=== PATIENT | male | born 1940 | race Caucasian/White ===

== ENCOUNTER 2018-09-03 13:22 | Emergency (ER) | payer MEDICARE, BC ==
--- NOTE | 2018-09-03 15:08 | RAD ---
RADIOGRAPH LEFT HIP TWO VIEWS: 09/03/2018 HISTORY: A 77-year-old male with history of multiple myeloma who presents with left hip pain. FINDINGS: There is an approximately 2.5 x 3 cm osteolytic lesion, centered in the marrow cavity of the proximal femoral diaphysis, which causes endosteal scalloping. There are multifocal, more subtle, smaller focal lucencies in the rest of the bones, including the i nferior ramus, the iliac wing, and the greater trochanter. This could be part of the osteopenia or c ould represent additional multiple myeloma lesions. The latter is favored. There is no evidence of acute fracture. No dislocation. Femoral head contour is maintained without significant subcapital osteophytes. There is mild bony hypertrophy of the acetabular roof. No high grade joint space narrowing of the left hip. IMPRESSION: 1. Osteolytic lesion in the left proximal femoral shaft is (evidence for) a multiple myeloma lesion. 2. Additional smaller osteolytic lesions. See above comments. 3. No fracture or dislocation. 4. Mild osteoarthrosis of the left hip. POS: [facility]
--- NOTE | 2018-09-03 15:12 | RAD ---
FRONTAL VIEW PELVIS: INDICATION: Pain. History of multiple myeloma. FINDINGS: There is no evidence of a fracture identified. A rounded hypodensity of the right ischium is present , and there are multiple areas of punctate hypodensity, nonspecific. There is a smaller hypodensity of the right femoral neck region. IMPRESSION: 1. No acute fracture. 2. Nonspecific lucencies overlying the osseous structures which could relate to sequelae from marrow infiltrative process in light of the clinical history. As necessary, imaging followup may be obtain ed. POS: [facility]
== END 2018-09-03 14:56 | disposition home or self-care (01) ==
LOC: MADERS 13:22
DX: M25.552 Pain in left hip (principal); C90.00 Multiple myeloma not having achieved remission; Z79.899 Other long term (current) drug therapy
CPT/HCPCS: 72170

== ENCOUNTER 2021-07-25 17:26 | Inpatient (IN) | payer MEDICARE, BC ==
[2021-07-25] MEDS ORDERED: FLU VACC QS2021-22(65YR UP)/PF 240 MCG/0.7 ML SYRINGE IM ONE (21:00)
[2021-07-25] MEDS ORDERED: Acetaminophen 325 MG TAB PO PRN ×2 (21:00→21:01)
[2021-07-25] MEDS ORDERED: Ondansetron ODT 4 MG TAB PO PRN (21:00)
[2021-07-25] MEDS ORDERED: Mometasone/Formoterol 60 PUFF AER INH SCH (23:30)
[2021-07-25] MEDS ORDERED: Nystatin 500,000 UNITS/5 ML UDCUP SSW SCH (23:30)
[2021-07-26] MEDS: Nystatin 500,000 UNITS/5 ML UDCUP SSW SCH ×4 (08:38→21:38)
[2021-07-26] MEDS: Aspirin 81 mg Enteric Coated Tablet PO SCH (08:38)
[2021-07-26] MEDS: Fluconazole 100 MG TAB PO SCH (08:38)
[2021-07-26] MEDS: Zinc Sulfate 220 MG CAP PO SCH (08:39)
[2021-07-26] MEDS: Saccharomyces boulardii 250 MG CAP PO SCH (08:39)
[2021-07-26] MEDS: Sucralfate 1 GM TAB PO SCH ×4 (08:39→21:38)
[2021-07-26] MEDS: Cholecalciferol 1,000 UNITS (25 MCG) TAB PO SCH (08:39)
[2021-07-26] MEDS: Mometasone/Formoterol 60 PUFF AER INH SCH ×2 (08:46→21:37)
[2021-07-26] MEDS ORDERED: Cholecalciferol (Vitamin D3) 400 UNITS TAB PO SCH (09:00)
[2021-07-27] MEDS: Mometasone/Formoterol 60 PUFF AER INH SCH ×2 (08:30→20:28)
[2021-07-27] MEDS ORDERED: Sucralfate 1 GM/10 ML UDCUP PO SCH (09:00)
[2021-07-27] MEDS: Saccharomyces boulardii 250 MG CAP PO SCH (09:48)
[2021-07-27] MEDS: Fluconazole 100 MG TAB PO SCH (09:48)
[2021-07-27] MEDS: Zinc Sulfate 220 MG CAP PO SCH (09:48)
[2021-07-27] MEDS: Aspirin 81 mg Enteric Coated Tablet PO SCH (09:48)
[2021-07-27] MEDS: Nystatin 500,000 UNITS/5 ML UDCUP SSW SCH ×4 (09:48→20:27)
[2021-07-27] MEDS: Cholecalciferol 1,000 UNITS (25 MCG) TAB PO SCH (09:48)
[2021-07-27] MEDS: Sucralfate 1 GM/10 ML UDCUP PO SCH ×3 (11:37→20:27)
[2021-07-28] MEDS: Sucralfate 1 GM/10 ML UDCUP PO SCH ×4 (05:38→21:26)
[2021-07-28] MEDS: Cholecalciferol 1,000 UNITS (25 MCG) TAB PO SCH (09:11)
[2021-07-28] MEDS: Zinc Sulfate 220 MG CAP PO SCH (09:11)
[2021-07-28] MEDS: Nystatin 500,000 UNITS/5 ML UDCUP SSW SCH ×4 (09:12→21:25)
[2021-07-28] MEDS: Aspirin 81 mg Enteric Coated Tablet PO SCH (09:12)
[2021-07-28] MEDS: Mometasone/Formoterol 60 PUFF AER INH SCH ×2 (09:12→21:22)
[2021-07-28] MEDS: Saccharomyces boulardii 250 MG CAP PO SCH (09:12)
[2021-07-28] MEDS: Fluconazole 100 MG TAB PO SCH (09:12)
[2021-07-29] MEDS: Sucralfate 1 GM/10 ML UDCUP PO SCH ×4 (05:45→20:16)
[2021-07-29] MEDS: Cholecalciferol 1,000 UNITS (25 MCG) TAB PO SCH (08:52)
[2021-07-29] MEDS: Saccharomyces boulardii 250 MG CAP PO SCH (08:52)
[2021-07-29] MEDS: Zinc Sulfate 220 MG CAP PO SCH (08:52)
[2021-07-29] MEDS: Nystatin 500,000 UNITS/5 ML UDCUP SSW SCH ×4 (08:52→20:52)
[2021-07-29] MEDS: Aspirin 81 mg Enteric Coated Tablet PO SCH (08:52)
[2021-07-29] MEDS: Fluconazole 100 MG TAB PO SCH (08:52)
[2021-07-29] MEDS: Mometasone/Formoterol 60 PUFF AER INH SCH ×2 (08:58→20:53)
[2021-07-30] MEDS: Sucralfate 1 GM/10 ML UDCUP PO SCH ×4 (05:48→20:12)
[2021-07-30] MEDS: Aspirin 81 mg Enteric Coated Tablet PO SCH (08:33)
[2021-07-30] MEDS: Cholecalciferol 1,000 UNITS (25 MCG) TAB PO SCH (08:33)
[2021-07-30] MEDS: Fluconazole 100 MG TAB PO SCH (08:33)
[2021-07-30] MEDS: Zinc Sulfate 220 MG CAP PO SCH (08:33)
[2021-07-30] MEDS: Saccharomyces boulardii 250 MG CAP PO SCH (08:33)
[2021-07-30] MEDS: Nystatin 500,000 UNITS/5 ML UDCUP SSW SCH ×4 (08:33→20:12)
[2021-07-30] MEDS: Mometasone/Formoterol 60 PUFF AER INH SCH ×2 (08:34→20:12)
[2021-07-31] MEDS: Sucralfate 1 GM/10 ML UDCUP PO SCH ×4 (05:22→19:53)
[2021-07-31] MEDS: Saccharomyces boulardii 250 MG CAP PO SCH (08:56)
[2021-07-31] MEDS: Mometasone/Formoterol 60 PUFF AER INH SCH ×2 (08:56→20:36)
[2021-07-31] MEDS: Zinc Sulfate 220 MG CAP PO SCH (08:56)
[2021-07-31] MEDS: Nystatin 500,000 UNITS/5 ML UDCUP SSW SCH ×4 (08:56→20:37)
[2021-07-31] MEDS: Aspirin 81 mg Enteric Coated Tablet PO SCH (08:56)
[2021-07-31] MEDS: Cholecalciferol 1,000 UNITS (25 MCG) TAB PO SCH (08:56)
[2021-08-01] MEDS: Sucralfate 1 GM/10 ML UDCUP PO SCH ×4 (05:27→20:55)
[2021-08-01] MEDS: Mometasone/Formoterol 60 PUFF AER INH SCH ×2 (08:23→20:55)
[2021-08-01] MEDS: Saccharomyces boulardii 250 MG CAP PO SCH (08:25)
[2021-08-01] MEDS: Cholecalciferol 1,000 UNITS (25 MCG) TAB PO SCH (08:25)
[2021-08-01] MEDS: Nystatin 500,000 UNITS/5 ML UDCUP SSW SCH ×4 (08:25→20:56)
[2021-08-01] MEDS: Aspirin 81 mg Enteric Coated Tablet PO SCH (08:26)
[2021-08-01] MEDS: Zinc Sulfate 220 MG CAP PO SCH (08:26)
[2021-08-02] MEDS: Sucralfate 1 GM/10 ML UDCUP PO SCH ×4 (05:44→20:36)
[2021-08-02] MEDS: Nystatin 500,000 UNITS/5 ML UDCUP SSW SCH ×4 (08:43→21:11)
[2021-08-02] MEDS: Saccharomyces boulardii 250 MG CAP PO SCH (08:43)
[2021-08-02] MEDS: Cholecalciferol 1,000 UNITS (25 MCG) TAB PO SCH (08:43)
[2021-08-02] MEDS: Zinc Sulfate 220 MG CAP PO SCH (08:43)
[2021-08-02] MEDS: Aspirin 81 mg Enteric Coated Tablet PO SCH (08:43)
[2021-08-02] MEDS: Mometasone/Formoterol 60 PUFF AER INH SCH ×2 (08:47→21:11)
[2021-08-03] MEDS: Sucralfate 1 GM/10 ML UDCUP PO SCH ×4 (05:30→20:09)
[2021-08-03] MEDS: Aspirin 81 mg Enteric Coated Tablet PO SCH (08:12)
[2021-08-03] MEDS: Cholecalciferol 1,000 UNITS (25 MCG) TAB PO SCH (08:12)
[2021-08-03] MEDS: Zinc Sulfate 220 MG CAP PO SCH (08:12)
[2021-08-03] MEDS: Nystatin 500,000 UNITS/5 ML UDCUP SSW SCH ×4 (08:12→20:48)
[2021-08-03] MEDS: Saccharomyces boulardii 250 MG CAP PO SCH (08:12)
[2021-08-03] MEDS: Mometasone/Formoterol 60 PUFF AER INH SCH ×2 (08:12→21:00)
[2021-08-03] MEDS: Melatonin 3 MG TAB PO PRN (20:49)
[2021-08-04] MEDS: Sucralfate 1 GM/10 ML UDCUP PO SCH ×4 (05:41→20:11)
[2021-08-04] MEDS: Aspirin 81 mg Enteric Coated Tablet PO SCH (09:16)
[2021-08-04] MEDS: Cholecalciferol 1,000 UNITS (25 MCG) TAB PO SCH (09:16)
[2021-08-04] MEDS: Mometasone/Formoterol 60 PUFF AER INH SCH ×2 (09:16→20:11)
[2021-08-04] MEDS: Saccharomyces boulardii 250 MG CAP PO SCH (09:17)
[2021-08-04] MEDS: Zinc Sulfate 220 MG CAP PO SCH (09:17)
[2021-08-04] MEDS: Nystatin 500,000 UNITS/5 ML UDCUP SSW SCH ×4 (09:18→20:11)
[2021-08-05] MEDS: Sucralfate 1 GM/10 ML UDCUP PO SCH ×4 (05:22→20:45)
[2021-08-05] MEDS: Cholecalciferol 1,000 UNITS (25 MCG) TAB PO SCH (08:57)
[2021-08-05] MEDS: Zinc Sulfate 220 MG CAP PO SCH (08:57)
[2021-08-05] MEDS: Mometasone/Formoterol 60 PUFF AER INH SCH ×2 (08:57→20:47)
[2021-08-05] MEDS: Aspirin 81 mg Enteric Coated Tablet PO SCH (08:57)
[2021-08-05] MEDS: Nystatin 500,000 UNITS/5 ML UDCUP SSW SCH ×4 (08:57→20:45)
[2021-08-05] MEDS: Saccharomyces boulardii 250 MG CAP PO SCH (08:57)
[2021-08-06] MEDS: Sucralfate 1 GM/10 ML UDCUP PO SCH ×4 (05:35→21:44)
[2021-08-06] MEDS: Cholecalciferol 1,000 UNITS (25 MCG) TAB PO SCH (08:38)
[2021-08-06] MEDS: Saccharomyces boulardii 250 MG CAP PO SCH (08:38)
[2021-08-06] MEDS: Zinc Sulfate 220 MG CAP PO SCH (08:38)
[2021-08-06] MEDS: Aspirin 81 mg Enteric Coated Tablet PO SCH (08:38)
[2021-08-06] MEDS: Mometasone/Formoterol 60 PUFF AER INH SCH ×2 (08:38→21:44)
[2021-08-06] MEDS: Nystatin 500,000 UNITS/5 ML UDCUP SSW SCH ×4 (08:38→21:45)
[2021-08-06] MEDS: Melatonin 3 MG TAB PO PRN (21:45)
[2021-08-07] MEDS: Sucralfate 1 GM/10 ML UDCUP PO SCH ×4 (06:01→20:49)
[2021-08-07] MEDS: Mometasone/Formoterol 60 PUFF AER INH SCH ×2 (07:51→20:49)
[2021-08-07] MEDS: Cholecalciferol 1,000 UNITS (25 MCG) TAB PO SCH (07:52)
[2021-08-07] MEDS: Zinc Sulfate 220 MG CAP PO SCH (07:52)
[2021-08-07] MEDS: Aspirin 81 mg Enteric Coated Tablet PO SCH (07:52)
[2021-08-07] MEDS: Saccharomyces boulardii 250 MG CAP PO SCH (07:52)
[2021-08-07] MEDS: Nystatin 500,000 UNITS/5 ML UDCUP SSW SCH ×4 (07:52→20:49)
[2021-08-07 09:54] VITALS: BMI 22.3
[2021-08-07] MEDS: REVLIMID PO SCH (15:30)
[2021-08-07] MEDS: Melatonin 3 MG TAB PO PRN (20:49)
[2021-08-08] MEDS: Sucralfate 1 GM/10 ML UDCUP PO SCH ×4 (05:34→20:07)
[2021-08-08] MEDS: Aspirin 81 mg Enteric Coated Tablet PO SCH (09:57)
[2021-08-08] MEDS: Mometasone/Formoterol 60 PUFF AER INH SCH ×2 (09:57→20:06)
[2021-08-08] MEDS: Saccharomyces boulardii 250 MG CAP PO SCH (09:57)
[2021-08-08] MEDS: Cholecalciferol 1,000 UNITS (25 MCG) TAB PO SCH (09:58)
[2021-08-08] MEDS: Nystatin 500,000 UNITS/5 ML UDCUP SSW SCH ×4 (09:58→20:07)
[2021-08-08] MEDS: Zinc Sulfate 220 MG CAP PO SCH (09:58)
[2021-08-08] MEDS: REVLIMID PO SCH (15:23)
[2021-08-09] MEDS: Sucralfate 1 GM/10 ML UDCUP PO SCH ×4 (05:25→20:37)
[2021-08-09] MEDS: Aspirin 81 mg Enteric Coated Tablet PO SCH (08:46)
[2021-08-09] MEDS: Nystatin 500,000 UNITS/5 ML UDCUP SSW SCH ×4 (08:46→20:37)
[2021-08-09] MEDS: Saccharomyces boulardii 250 MG CAP PO SCH (08:46)
[2021-08-09] MEDS: Zinc Sulfate 220 MG CAP PO SCH (08:46)
[2021-08-09] MEDS: Cholecalciferol 1,000 UNITS (25 MCG) TAB PO SCH (08:47)
[2021-08-09] MEDS: Mometasone/Formoterol 60 PUFF AER INH SCH ×2 (08:47→20:37)
[2021-08-09] MEDS: REVLIMID PO SCH (15:30)
[2021-08-10] MEDS: Sucralfate 1 GM/10 ML UDCUP PO SCH ×3 (05:13→17:15)
[2021-08-10] MEDS: Mometasone/Formoterol 60 PUFF AER INH SCH (08:04)
[2021-08-10] MEDS: Saccharomyces boulardii 250 MG CAP PO SCH (08:05)
[2021-08-10] MEDS: Zinc Sulfate 220 MG CAP PO SCH (08:05)
[2021-08-10] MEDS: Cholecalciferol 1,000 UNITS (25 MCG) TAB PO SCH (08:05)
[2021-08-10] MEDS: Nystatin 500,000 UNITS/5 ML UDCUP SSW SCH ×3 (08:05→17:15)
[2021-08-10] MEDS: Aspirin 81 mg Enteric Coated Tablet PO SCH (08:05)
[2021-08-10] MEDS: REVLIMID PO SCH (15:50)
[2021-08-10 16:08] VITALS: BP 92/56; TEMP 97.6
[2021-08-10] MEDS ORDERED: FLU VACC QS2021-22(65YR UP)/PF 240 MCG/0.7 ML SYRINGE IM ONE (18:15)
== END 2021-08-10 17:40 | disposition home health service (06) | DRG 947 ==
LOC: MADMS 17:26
PROVIDERS: ADMIT Family Medicine; ATTEND Family Medicine
DX: R53.81 Other malaise (principal); J96.01 Acute respiratory failure with hypoxia; U07.1 COVID-19; C90.00 Multiple myeloma not having achieved remission; A04.72 Enterocolitis due to Clostridium difficile, not specified as recurrent; B37.0 Candidal stomatitis; I10 Essential (primary) hypertension; B37.2 Candidiasis of skin and nail; R13.10 Dysphagia, unspecified; F32.A Depression, unspecified; Z79.82 Long term (current) use of aspirin; Z79.899 Other long term (current) drug therapy
CPT/HCPCS: 94664

== ENCOUNTER 2021-09-25 01:21 | Emergency (ER) | payer MEDICARE, BC ==
[2021-09-25] MEDS ORDERED: Norepinephrine 4 MG/4 ML VIAL IVPB ONE (01:22)
[2021-09-25] MEDS ORDERED: Acetaminophen 500 MG TAB ONE (01:42)
[2021-09-25] MEDS ORDERED: Sodium Chloride 0.9% 100 ML ONE (02:17)
[2021-09-25] MEDS ORDERED: Cefepime 2 GM VIAL ONE (02:17)
[2021-09-25 02:20] LABS: #Eosinphils 0.2 thou/uL (0.0-0.7); #Lymphocytes 0.5 thou/uL (1.20-3.40); #Monocytes 0.1 thou/uL (0.11-0.59); #Neutrophils 6.2 thou/uL (1.40-6.50); %Basophils 0.6 % (0.0-1.0); %Eosinophils 2.3 % (0.0-10.0); %Lymphocytes 6.6 % (21.0-51.0); %Monocytes 0.7 % (0.0-10.0); %Neutrophils 89.8 % (42.0-75.0); Hemoglobin 11.6 g/dL (14.0-18.0); Mean Corpuscular HGB CONC 32.8 g/dL (32.0-36.0); Mean Corpuscular Hemoglobin 33.4 pg (27.0-31.0); Mean Corpuscular Volume 101.8 fL (78.0-98.0); Mean Platelet Volume 9.6 fL (7.4-10.4); Platelet Count 231 thou/uL (130-400); RBC Distribution Width 14.6 % (11.5-14.5); Red Blood Cell (RBC) Count 3.47 mill/uL (4.70-6.10); White Blood Cell (WBC) Count 6.9 thou/uL (4.8-10.8)
[2021-09-25 02:22] LABS: Bilirubin Negative (Negative); Blood, Urine Negative (Negative); Clarity Clear (Clear); Glucose, Urine (Dipstick) Negative (Negative); Ketone, Urine Negative (Negative); Leukocyte Negative (Negative); Nitrite Negative (Negative); Protein, Urine (Dipstick) Negative (Neg-Trace); Urobilinogen 0.2 mg/dL (Less than 2); pH, Urine 6.5 (5.0-9.0)
[2021-09-25 02:25] LABS: ALT (SGPT) 281 U/L (8-55); AST (SGOT) 607 U/L (5-34); Albumin 2.7 g/dL (3.4-4.8); Alkaline Phosphatase 155 U/L (40-110); Anion Gap 13 mmol/L (10-20); BUN (Urea Nitrogen) 8 mg/dL (8.4-25.7); Bilirubin, Total 1.2 mg/dL (0.2-1.2); Calc. Creatinine Clearance 0 mL/min (70-130); Calcium 6.4 mg/dL (7.8-10.44); Carbon Dioxide 25 mmol/L (23-31); Chloride 106 mmol/L (98-107); Globulin 2.2 g/dL (2.4-3.5); Glucose 113 mg/dL (83-110); Protein, Total 4.9 g/dL (5.8-8.1); Sodium 141 mmol/L (136-145)
[2021-09-25 02:31] LABS: Potassium 2.5 mmol/L (3.5-5.1)
[2021-09-25] MEDS ORDERED: Sodium Chloride 0.9% 1,000 ML ONE (02:43)
[2021-09-25] MEDS ORDERED: Potassium Chloride 20 MEQ TAB ONE (03:11)
[2021-09-25] MEDS ORDERED: Calcium Carbonate 500 MG ChewTAB ONE (03:20)
[2021-09-25] MEDS ORDERED: Norepinephrine 4 MG/4 ML VIAL ONE (04:04)
[2021-09-25 04:10] LABS: SARS-CoV-2 NAA Rapid Test Not Detected (NotDetected)
[2021-09-25 04:26] LABS: INR-International Normal Ratio 1.2; PTT 30.5 sec (22.9-36.1)
[2021-09-25 04:53] LABS: Lactic Acid 1.1 mmol/L (0.5-2.2)
== END 2021-09-25 04:46 | disposition short-term general hospital (02) ==
LOC: MADERS 01:21
DX: A41.9 Sepsis, unspecified organism (principal); R74.8 Abnormal levels of other serum enzymes; K92.1 Melena; E83.51 Hypocalcemia; E87.6 Hypokalemia; Z20.822 Contact with and (suspected) exposure to COVID-19; Z86.16 Personal history of COVID-19; Z79.82 Long term (current) use of aspirin; Z79.899 Other long term (current) drug therapy
CPT/HCPCS: 36415; 71045; 80053; 81003; 82274; 83605; 85025; 85610; 85730; 87040; 87086; 93005; 96365; 96366; 96367; J0692; J3370; J3490; J7050; J7070; U0002

== ENCOUNTER 2021-11-27 17:13 | Emergency (ER) | payer MEDICARE, BC | END 2021-11-27 17:45 | disposition home or self-care (01) | LOC: MADERS 17:13 | DX: L02.811 Cutaneous abscess of head [any part, except face] (principal) | CPT/HCPCS: 99282 ==

== ENCOUNTER 2022-08-26 13:35 | Emergency (ER) | payer MEDICARE, BC ==
[~2022-08-26 13:35] MED LIST: Iopamidol 370 76% 125 ML VIAL FS ONE; Sodium Chloride 0.9% 100 ML BAG ONE
[2022-08-26 14:38] LABS: #Basophils 0.1 thou/uL (0.0-0.2); #Eosinphils 0.1 thou/uL (0.0-0.7); #Lymphocytes 1.5 thou/uL (1.20-3.40); #Monocytes 0.4 thou/uL (0.11-0.59); %Basophils 0.5 % (0.0-1.0); %Lymphocytes 11.3 % (21.0-51.0); %Monocytes 2.9 % (0.0-10.0); %Neutrophils 84.4 % (42.0-75.0); Hemoglobin 15.5 g/dL (14.0-18.0); Mean Corpuscular HGB CONC 33.3 g/dL (32.0-36.0); Mean Corpuscular Hemoglobin 33.2 pg (27.0-31.0); Mean Platelet Volume 13.4 fL (7.4-10.4); Platelet Count 156 thou/uL (130-400); RBC Distribution Width 12.8 % (11.5-14.5); Red Blood Cell (RBC) Count 4.65 mill/uL (4.70-6.10); White Blood Cell (WBC) Count 13.1 thou/uL (4.8-10.8)
[2022-08-26 14:54] LABS: Large Platelets SLIGHT
[2022-08-26 14:55] LABS: ALT (SGPT) 84 U/L (8-55); AST (SGOT) 29 U/L (5-34); Albumin 4.1 g/dL (3.4-4.8); Alkaline Phosphatase 73 U/L (40-110); Anion Gap 14 mmol/L (10-20); BUN (Urea Nitrogen) 8 mg/dL (8.4-25.7); Calc. Creatinine Clearance 0 mL/min (70-130); Calcium 9.6 mg/dL (7.8-10.44); Carbon Dioxide 27 mmol/L (23-31); Chloride 104 mmol/L (98-107); Estimated GFR 74; Globulin 2.7 g/dL (2.4-3.5); Glucose 99 mg/dL (83-110); Potassium 4.5 mmol/L (3.5-5.1); Protein, Total 6.8 g/dL (5.8-8.1); Sodium 140 mmol/L (136-145)
[2022-08-26 15:04] LABS: Base Excess-Venous 1.8 mmol/L (-2.0 to 3.0); Bicarbonate (HCO3v) 30.4 mmol/L (22.0-28.0); CO2 Tension (PvCO2) 60.9 mmHg (42.0-51.0); Calcium, Ionized 1.27 mmol/L (1.15-1.33); Chloride 105 mmol/L (98-107); Hemoglobin - Calc 17.9 g/dL (14.0-18.0); Potassium 4.4 mmol/L (3.5-5.1); Sodium 145 mmol/L (138-145); T. Carbon Dioxide 32.2 mmol/L (22.0-28.0)
[2022-08-26] MEDS ORDERED: predniSONE 20 MG TAB ONE (17:18)
[2022-08-26] MEDS ORDERED: predniSONE 10 MG TAB ONE (17:18)
[2022-08-26] MEDS ORDERED: Albuterol 200 PUFF (6.7GM INHALER) ONE (17:18)
[2022-08-26] MEDS ORDERED: Diazepam 5 MG TAB ONE (17:18)
[2022-08-26 17:29] LABS: Base Excess-Venous 0.7 mmol/L (-2.0 to 3.0); Bicarbonate (HCO3v) 27.9 mmol/L (22.0-28.0); CO2 Tension (PvCO2) 53.2 mmHg (42.0-51.0); Chloride 102 mmol/L (98-107); Hemoglobin - Calc 16.4 g/dL (14.0-18.0); Potassium 3.8 mmol/L (3.5-5.1); Sodium 141 mmol/L (138-145); T. Carbon Dioxide 29.6 mmol/L (22.0-28.0); vO2 Saturation-calc 98.6 % (60.0-85.0)
== END 2022-08-26 19:20 | disposition home or self-care (01) ==
LOC: MADERS 13:35
DX: J45.909 Unspecified asthma, uncomplicated (principal); J20.9 Acute bronchitis, unspecified; E87.29 Other acidosis; Z20.822 Contact with and (suspected) exposure to COVID-19
CPT/HCPCS: 71045; 71275; 80053; 82330; 82435; 82803; 83605; 83880; 84132; 84295; 84484; 85014; 85025; 87040; 87081; 87430; 87804 ×2; 93005; 94760; U0003; U0005; 36415; J7512; J7620; Q9967

== ENCOUNTER 2023-01-06 06:27 | Emergency (ER) | payer MEDICARE, BC ==
[2023-01-06] MEDS ORDERED: Aspirin 325 MG TAB ONE (06:58)
[2023-01-06 07:05] LABS: Band 2 % (5-11); Eosinophils 1 % (0-10); Hemoglobin 14.6 g/dL (14.0-18.0); Lymphocytes 24 % (21-51); MDiff Complete? YES; Mean Corpuscular HGB CONC 34.5 g/dL (32.0-36.0); Mean Corpuscular Hemoglobin 32.5 pg (27.0-31.0); Mean Corpuscular Volume 94.1 fl (78.0-98.0); Monocytes 6 % (0-10); Neutrophil 64 % (42-75); Platelet Count 170 10x3/uL (130-400); RBC Distribution Width 12.5 % (11.5-14.5); RBC Morphology Normal; Reactive Lymphocytes 3 % (0-10); Red Blood Cell (RBC) Count 4.51 mill/uL (4.70-6.10)
[2023-01-06 07:16] LABS: ALT (SGPT) 43 U/L (8-55); AST (SGOT) 26 U/L (5-34); Albumin 3.9 g/dL (3.4-4.8); Alkaline Phosphatase 60 U/L (40-110); Anion Gap 10 mmol/L (10-20); BUN (Urea Nitrogen) 16 mg/dL (8.4-25.7); Bilirubin, Total 0.5 mg/dL (0.2-1.2); Calc. Creatinine Clearance 0 mL/min (70-130); Calcium 9.6 mg/dL (7.8-10.44); Carbon Dioxide 28 mmol/L (23-31); Chloride 106 mmol/L (98-107); Estimated GFR 86; Globulin 2.5 g/dL (2.4-3.5); Glucose 95 mg/dL (83-110); Lipase 61 U/L (8-78); Potassium 4.3 mmol/L (3.5-5.1); Protein, Total 6.4 g/dL (5.8-8.1); Sodium 140 mmol/L (136-145)
[2023-01-06] MEDS ORDERED: Lidocaine Viscous Sol 2% 15 ml UD Cup ONE (07:40)
[2023-01-06] MEDS ORDERED: Mag-Al Plus 1200 MG/1200 MG/120 MG/30 ML UDCUP ONE (07:40)
[2023-01-06] MEDS ORDERED: Iopamidol 370 76% 100 ML VIAL ONE (09:09)
[2023-01-06] MEDS ORDERED: Ketorolac Tromethamine 30 MG/ML VIAL ONE (09:13)
== END 2023-01-06 10:26 | disposition home or self-care (01) ==
LOC: MADERS 06:27
DX: K80.20 Calculus of gallbladder without cholecystitis without obstruction (principal); E78.00 Pure hypercholesterolemia, unspecified; I11.0 Hypertensive heart disease with heart failure; I50.9 Heart failure, unspecified; I25.2 Old myocardial infarction; Z79.01 Long term (current) use of anticoagulants; Z79.82 Long term (current) use of aspirin; Z79.899 Other long term (current) drug therapy
CPT/HCPCS: 71045; 74177; 80053; 83690; 83735; 83880; 84484; 85025; 93005; 96374; J1885; Q9967

== ENCOUNTER 2023-04-01 17:30 | Emergency (ER) | payer MEDICARE, BC ==
[2023-04-01] MEDS ORDERED: Sodium Chloride 0.9% 1,000 ML ONE (18:35)
[2023-04-01] MEDS ORDERED: Metoclopramide HCl 10 MG/2 ML VIAL ONE (18:35)
[2023-04-01] MEDS ORDERED: Sodium Chloride 0.9% 50 ML ONE (18:35)
[2023-04-01 19:15] LABS: #Basophils 0.1 thou/uL (0.0-0.2); #Eosinphils 0.1 thou/uL (0.0-0.7); #Lymphocytes 2.3 thou/uL (1.20-3.40); #Monocytes 0.5 thou/uL (0.11-0.59); #Neutrophils 3.5 thou/uL (1.40-6.50); %Basophils 0.9 % (0.0-1.0); %Eosinophils 1.6 % (0.0-10.0); %Lymphocytes 35.7 % (21.0-51.0); %Monocytes 7.2 % (0.0-10.0); %Neutrophils 54.7 % (42.0-75.0); Hemoglobin 11.9 g/dL (14.0-18.0); Mean Corpuscular HGB CONC 33.3 g/dL (32.0-36.0); Mean Corpuscular Hemoglobin 33.3 pg (27.0-31.0); Mean Corpuscular Volume 100.2 fl (78.0-98.0); Mean Platelet Volume 11.7 fL (7.4-10.4); Platelet Count 287 10x3/uL (130-400); RBC Distribution Width 14.3 % (11.5-14.5); Red Blood Cell (RBC) Count 3.56 mill/uL (4.70-6.10); White Blood Cell (WBC) Count 6.3 10x3/uL (4.8-10.8)
[2023-04-01 19:27] LABS: Bilirubin Small (Negative); Blood, Urine Trace (Negative); Clarity Slightly Cloudy (Clear); Glucose, Urine (Dipstick) Negative (Negative); Ketone, Urine Negative (Negative); Leukocyte Negative (Negative); Nitrite Negative (Negative); Protein, Urine (Dipstick) 100 mg/dL (Neg-Trace); Urobilinogen 0.2 mg/dL (Less than 2)
[2023-04-01 19:27] LABS: PTT 36.8 sec (22.9-36.1)
[2023-04-01 19:28] LABS: INR-International Normal Ratio 1.8; Prothrombin Time 21.2 sec (12.0-14.7)
[2023-04-01 19:29] LABS: D-Dimer Test 0.31 *mcg/mL (0.27-0.43)
[2023-04-01 19:29] LABS: CAUTI Indications for Culture Urological Procedure; Specific Gravity, Urine 1.028 (1.002-1.036)
[2023-04-01 19:34] LABS: Anion Gap 17 mmol/L (10-20); BUN (Urea Nitrogen) 35 mg/dL (8.4-25.7); Calc. Creatinine Clearance 0 mL/min (70-130); Calcium 9.9 mg/dL (7.8-10.44); Carbon Dioxide 17 mmol/L (23-31); Chloride 104 mmol/L (98-107); Estimated GFR 37; Glucose 105 mg/dL (83-110); Lipase 147 U/L (8-78); Potassium 4.3 mmol/L (3.5-5.1); Sodium 134 mmol/L (136-145)
[2023-04-01 19:34] LABS: Bacteria/HPF 4+ HPF (None Seen); RBC/HPF 0-3 HPF (0-3); Squamous Epithelial 0-3 HPF (0-3)
[2023-04-01 19:36] LABS: Urine Culture Reflex Yes Yes
== END 2023-04-01 21:05 | disposition home or self-care (01) ==
LOC: MADERS 17:30
DX: R11.0 Nausea (principal); E78.5 Hyperlipidemia, unspecified; I11.0 Hypertensive heart disease with heart failure; I50.9 Heart failure, unspecified; Z79.899 Other long term (current) drug therapy; Z79.82 Long term (current) use of aspirin; Z79.01 Long term (current) use of anticoagulants
CPT/HCPCS: 36415; 74176; 80048; 81001; 83605; 83690; 84484; 85025; 85379; 85610; 85730; 87086; 93005; 96365; J2765; J7050

== ENCOUNTER 2023-05-17 15:12 | Emergency (ER) | payer MEDICARE, BC ==
[~2023-05-17 15:12] MED LIST changes: -Iopamidol 370 76% 125 ML VIAL FS ONE; +Lactated Ringer's 1,000 ML BAG ONE; -Sodium Chloride 0.9% 100 ML BAG ONE
[2023-05-17] MEDS ORDERED: Potassium Chloride 20 MEQ TAB ONE (15:41)
[2023-05-17 16:26] LABS: ALT (SGPT) 26 U/L (8-55); AST (SGOT) 23 U/L (5-34); Albumin 2.8 g/dL (3.4-4.8); Alkaline Phosphatase 75 U/L (40-110); Anion Gap 13 mmol/L (10-20); BUN (Urea Nitrogen) 6 mg/dL (8.4-25.7); Bilirubin, Total 0.3 mg/dL (0.2-1.2); Calc. Creatinine Clearance 0 mL/min (70-130); Calcium 7.6 mg/dL (7.8-10.44); Carbon Dioxide 25 mmol/L (23-31); Chloride 104 mmol/L (98-107); Estimated GFR 87; Globulin 3.1 g/dL (2.4-3.5); Glucose 97 mg/dL (83-110); Magnesium 1.2 mg/dL (1.6-2.6); Protein, Total 5.9 g/dL (5.8-8.1); Sodium 140 mmol/L (136-145)
[2023-05-17 16:39] LABS: Potassium 2.4 mmol/L (3.5-5.1)
[2023-05-17 17:45] LABS: Band 2 % (5-11); Eosinophils 3 % (0-10); Hemoglobin 11.2 g/dL (14.0-18.0); Lymphocytes 26 % (21-51); MDiff Complete? YES; Mean Corpuscular Hemoglobin 33.2 pg (27.0-31.0); Mean Corpuscular Volume 97.6 fl (78.0-98.0); Mean Platelet Volume 8.2 fL (7.4-10.4); Monocytes 10 % (0-10); Neutrophil 41 % (42-75); Platelet Adequacy Comment Appears Adequate; Platelet Count 261 10x3/uL (130-400); RBC Distribution Width 15.8 % (11.5-14.5); Reactive Lymphocytes 18 % (0-10); Red Blood Cell (RBC) Count 3.36 mill/uL (4.70-6.10)
[2023-05-17] MEDS ORDERED: metroNIDAZOLE 500 MG/100 ML BAG ONE (18:35)
[2023-05-17] MEDS ORDERED: Magnesium 2 GM/50 ML BAG (IN WATER) ONE (19:20)
== END 2023-05-17 21:33 | disposition short-term general hospital (02) ==
LOC: MADERS 15:12
DX: R19.7 Diarrhea, unspecified (principal); E87.6 Hypokalemia; E78.5 Hyperlipidemia, unspecified; I11.0 Hypertensive heart disease with heart failure; I50.9 Heart failure, unspecified; Z79.899 Other long term (current) drug therapy; Z79.01 Long term (current) use of anticoagulants; Z79.82 Long term (current) use of aspirin
CPT/HCPCS: 36415; 71046; 80053; 83690; 83735; 83880; 84484; 85025; 87324; 87449; 93005; 96365; 96366; 96367; 96368; J3475; J7120

== ENCOUNTER 2023-07-04 13:19 | Emergency (ER) | payer MEDICARE, BC ==
[2023-07-04] MEDS ORDERED: Cefepime 2 GM VIAL ONE (14:09)
[2023-07-04] MEDS ORDERED: Lactated Ringer's 1,000 ML ONE (14:09)
[2023-07-04] MEDS ORDERED: Vancomycin 1 GM VIAL ONE (14:09)
[2023-07-04] MEDS ORDERED: Sodium Chloride 0.9% 100 ML ONE (14:09)
[2023-07-04] MEDS ORDERED: Sodium Chloride 0.9% 250 ML 250 ML ONE (14:09)
[2023-07-04 14:26] LABS: #Lymphocytes 0.7 thou/uL (1.20-3.40); #Monocytes 0.2 thou/uL (0.11-0.59); #Neutrophils 3.7 thou/uL (1.40-6.50); %Basophils 0.4 % (0.0-1.0); %Lymphocytes 14.4 % (21.0-51.0); %Monocytes 3.2 % (0.0-10.0); %Neutrophils 81.9 % (42.0-75.0); Hemoglobin 11.9 g/dL (14.0-18.0); Mean Corpuscular HGB CONC 33.1 g/dL (32.0-36.0); Mean Corpuscular Hemoglobin 34.4 pg (27.0-31.0); Mean Corpuscular Volume 104.1 fl (78.0-98.0); Mean Platelet Volume 10.2 fL (7.4-10.4); Platelet Count 178 10x3/uL (130-400); RBC Distribution Width 16.7 % (11.5-14.5); Red Blood Cell (RBC) Count 3.45 mill/uL (4.70-6.10); White Blood Cell (WBC) Count 4.5 10x3/uL (4.8-10.8)
[2023-07-04 14:28] LABS: ALT (SGPT) 70 U/L (8-55); AST (SGOT) 31 U/L (5-34); Albumin 3.3 g/dL (3.4-4.8); Alkaline Phosphatase 209 U/L (40-110); Anion Gap 19 mmol/L (10-20); Anisocytosis SLIGHT = 6-15 cells (100X) (0-5/hpf); BUN (Urea Nitrogen) 23 mg/dL (8.4-25.7); Bilirubin, Total 0.3 mg/dL (0.2-1.2); Calc. Creatinine Clearance 0 mL/min (70-130); Calcium 8.8 mg/dL (7.8-10.44); Carbon Dioxide 17 mmol/L (23-31); Chloride 102 mmol/L (98-107); Estimated GFR 53; Globulin 4.5 g/dL (2.4-3.5); Glucose 94 mg/dL (83-110); Lipase 52 U/L (8-78); Macrocytosis SLIGHT = 6-15 cells (100X) (0-5/hpf); Magnesium 1.4 mg/dL (1.6-2.6); Platelet Adequacy Comment Appears Adequate; Potassium 3.6 mmol/L (3.5-5.1); Protein, Total 7.8 g/dL (5.8-8.1); Sodium 134 mmol/L (136-145)
[2023-07-04] MEDS ORDERED: Magnesium 2 GM/50 ML BAG (IN WATER) ONE (14:55)
[2023-07-04 17:04] LABS: Bilirubin Negative (Negative); Blood, Urine Negative (Negative); Glucose, Urine (Dipstick) Negative (Negative); Ketone, Urine Negative (Negative); Leukocyte Negative (Negative); Nitrite Negative (Negative); Protein, Urine (Dipstick) 100 mg/dL (Neg-Trace); Urobilinogen 0.2 mg/dL (Less than 2)
[2023-07-04 17:05] LABS: CAUTI Indications for Culture Pelvic or flank pain; Clarity Hazy (Clear); Specific Gravity, Urine 1.027 (1.005-1.030)
[2023-07-04 17:06] LABS: Bacteria/HPF 1+ HPF (None Seen); RBC/HPF 0-3 HPF (0-3); Squamous Epithelial 0-3 HPF (0-3); WBC/HPF 0-3 HPF (0-3)
[2023-07-04 17:07] LABS: Urine Culture Reflex No No
[2023-07-04 17:18] LABS: SARS-CoV-2 NAA Rapid Test Not Detected (NotDetected)
[2023-07-04 18:34] LABS: INR-International Normal Ratio 1.4; PTT 36.1 sec (22.9-36.1); Prothrombin Time 17.6 sec (12.0-14.7)
[2023-07-05 01:45] LABS: Campy jejuni + coli by PCR Negative (Negative); STEC Shiga Toxin 1+2 Negative (Negative); Salmonella spp. by PCR POSITIVE (Negative); Shigella spp + EIEC by PCR Negative (Negative)
== END 2023-07-04 18:15 | disposition home or self-care (01) ==
LOC: MADERS 13:19
DX: E86.0 Dehydration (principal); E83.42 Hypomagnesemia; R74.01 Elevation of levels of liver transaminase levels; D72.819 Decreased white blood cell count, unspecified; I11.0 Hypertensive heart disease with heart failure; I50.9 Heart failure, unspecified; E78.5 Hyperlipidemia, unspecified; Z79.899 Other long term (current) drug therapy; Z79.01 Long term (current) use of anticoagulants; Z79.82 Long term (current) use of aspirin; Z20.822 Contact with and (suspected) exposure to COVID-19
CPT/HCPCS: 71045; 81001; 83605; 83690; 83735; 83880; 84484; 85610; 85730; 87040; 87324; 87449; 87505; 87804 ×2; 93005; 94760; U0002; 80053; 84443; 85025; 96365; 96367; J0692; J3370; J3475; J3490; J7050; J7120

== ENCOUNTER 2023-08-22 22:21 | Emergency (ER) | payer MEDICARE, BC | END 2023-08-22 23:03 | disposition home or self-care (01) | LOC: MADERS 22:21 | DX: S00.412A Abrasion of left ear, initial encounter (principal); Z79.01 Long term (current) use of anticoagulants; E78.5 Hyperlipidemia, unspecified; I11.0 Hypertensive heart disease with heart failure; I50.9 Heart failure, unspecified; Z79.899 Other long term (current) drug therapy; Z79.82 Long term (current) use of aspirin; X58.XXXA Exposure to other specified factors, initial encounter | CPT/HCPCS: 99282 ==

== ENCOUNTER 2023-11-14 09:55 | Emergency (ER) | payer MEDICARE, BC ==
[2023-11-14] MEDS ORDERED: Boostrix 0.5 ML (Tdap) VIAL (>/=7 yrs of age) ONE (10:24)
[2023-11-14 10:34] LABS: Hematocrit 27.9 % (42.0-52.0); Hemoglobin 9.6 g/dL (14.0-18.0); Mean Corpuscular Hemoglobin 36.8 pg (27.0-31.0); Mean Corpuscular Volume 105.2 fl (78.0-98.0); Mean Platelet Volume 10.5 fL (7.4-10.4); Platelet Count 120 10x3/uL (130-400); RBC Distribution Width 15.7 % (11.5-14.5); Red Blood Cell (RBC) Count 2.56 mill/uL (4.70-6.10); White Blood Cell (WBC) Count 5.5 10x3/uL (4.8-10.8)
[2023-11-14 10:44] LABS: Band 4 % (5-11); MDiff Complete? YES; Manual Diff?? YES; Neutrophil 82 % (42-75)
[2023-11-14 10:45] LABS: Anisocytosis SLIGHT = 6-15 cells (100X) (0-5/hpf); Lymphocytes 7 % (21-51); Monocytes 7 % (0-10); Platelet Adequacy Comment Appears Decreased
[2023-11-14 10:47] LABS: ALT (SGPT) 79 U/L (8-55); AST (SGOT) 46 U/L (5-34); Albumin 3.1 g/dL (3.4-4.8); Alkaline Phosphatase 109 U/L (40-110); Anion Gap 14 mmol/L (10-20); BUN (Urea Nitrogen) 16 mg/dL (8.4-25.7); Bilirubin, Total 0.6 mg/dL (0.2-1.2); Calc. Creatinine Clearance 0 mL/min (70-130); Calcium 8.4 mg/dL (7.8-10.44); Carbon Dioxide 17 mmol/L (23-31); Chloride 114 mmol/L (98-107); Estimated GFR 79; Globulin 3.3 g/dL (2.4-3.5); Glucose 74 mg/dL (83-110); Macrocytosis SLIGHT = 6-15 cells (100X) (0-5/hpf); Magnesium 1.6 mg/dL (1.6-2.6); Potassium 2.9 mmol/L (3.5-5.1); Protein, Total 6.4 g/dL (5.8-8.1); Sodium 142 mmol/L (136-145)
[2023-11-14 10:48] LABS: Hypochromia SLIGHT = 6-15 cells (100X) (0-5/hpf); Troponin I Less than 0.010 ng/mL (< 0.028)
[2023-11-14 10:59] LABS: INR-International Normal Ratio 1.6; Prothrombin Time 19.4 sec (12.0-14.7)
[2023-11-14 11:00] LABS: PTT 32.5 sec (22.9-36.1)
[2023-11-14] MEDS ORDERED: Human Prothrombin Complx(PCC) 500 UNITS VIAL ONE (11:06)
[2023-11-14] MEDS ORDERED: HUM PROTHROMBIN CPLX(PCC) 1,000 UNITS VIAL ONE (11:06)
[2023-11-14] MEDS ORDERED: NS 0.9% w/ 20 MEQ KCL 1,000 ML ONE (11:50)
== END 2023-11-14 12:46 | disposition short-term general hospital (02) ==
LOC: MADERS 09:55
DX: S06.6X9A Traumatic subarachnoid hemorrhage with loss of consciousness of unspecified duration, initial encounter (principal); S00.83XA Contusion of other part of head, initial encounter; S00.81XA Abrasion of other part of head, initial encounter; E87.6 Hypokalemia; D69.6 Thrombocytopenia, unspecified; E78.5 Hyperlipidemia, unspecified; I11.0 Hypertensive heart disease with heart failure; I50.9 Heart failure, unspecified; I25.2 Old myocardial infarction; W01.198A Fall on same level from slipping, tripping and stumbling with subsequent striking against other object, initial encounter; Z23 Encounter for immunization; Z79.82 Long term (current) use of aspirin; Z79.899 Other long term (current) drug therapy
CPT/HCPCS: 70450; 72125; 80053; 83735; 84484; 85025; 85610; 85730; 90471; 90715; 93005; 94760; 96365; 96375; J3480; J7168

== ENCOUNTER 2023-11-22 21:03 | Emergency (ER) | payer MEDICARE, BC ==
[2023-11-22] MEDS ORDERED: levETIRAcetam 500 MG (5 mL) VIAL ONE (21:25)
[2023-11-22] MEDS ORDERED: Sodium Chloride 0.9% 100 ML ONE (21:25)
[2023-11-22 21:32] LABS: INR-International Normal Ratio 1.1; PTT 30.2 sec (22.9-36.1); Prothrombin Time 14.5 sec (12.0-14.7)
[2023-11-22 21:41] LABS: ALT (SGPT) 46 U/L (8-55); AST (SGOT) 22 U/L (5-34); Albumin 3.5 g/dL (3.4-4.8); Alkaline Phosphatase 110 U/L (40-110); Anion Gap 18 mmol/L (10-20); Anisocytosis SLIGHT = 6-15 cells (100X) (0-5/hpf); BUN (Urea Nitrogen) 21 mg/dL (8.4-25.7); Band 1 % (5-11); Bilirubin, Total 0.4 mg/dL (0.2-1.2); Calc. Creatinine Clearance 0 mL/min (70-130); Calcium 9.3 mg/dL (7.8-10.44); Carbon Dioxide 19 mmol/L (23-31); Chloride 106 mmol/L (98-107); Estimated GFR 43; Globulin 3.7 g/dL (2.4-3.5); Glucose 102 mg/dL (83-110); Hematocrit 32.2 % (42.0-52.0); Lymphocytes 22 % (21-51); MDiff Complete? YES; Macrocytosis SLIGHT = 6-15 cells (100X) (0-5/hpf); Mean Corpuscular HGB CONC 34.1 g/dL (32.0-36.0); Mean Corpuscular Hemoglobin 36.3 pg (27.0-31.0); Mean Corpuscular Volume 106.4 fl (78.0-98.0); Mean Platelet Volume 12.5 fL (7.4-10.4); Monocytes 13 % (0-10); Neutrophil 64 % (42-75); Platelet Adequacy Comment Appears Decreased; Platelet Count 85 10x3/uL (130-400); Potassium 2.8 mmol/L (3.5-5.1); Protein, Total 7.2 g/dL (5.8-8.1); RBC Distribution Width 16.1 % (11.5-14.5); Red Blood Cell (RBC) Count 3.02 mill/uL (4.70-6.10); Sodium 140 mmol/L (136-145); White Blood Cell (WBC) Count 3.3 10x3/uL (4.8-10.8)
[2023-11-22 21:42] LABS: Magnesium 1.6 mg/dL (1.6-2.6)
[2023-11-22] MEDS ORDERED: Magnesium 2 GM/50 ML BAG (IN WATER) ONE (21:50)
[2023-11-22] MEDS ORDERED: Potassium Chloride 20 MEQ TAB ONE (21:50)
[2023-11-22] MEDS ORDERED: Lactated Ringer's 1,000 ML ONE (22:05)
== END 2023-11-22 22:56 | disposition short-term general hospital (02) ==
LOC: MADERS 21:03
DX: S06.5X0A Traumatic subdural hemorrhage without loss of consciousness, initial encounter (principal); R94.4 Abnormal results of kidney function studies; E87.6 Hypokalemia; D61.818 Other pancytopenia; R56.9 Unspecified convulsions; I11.0 Hypertensive heart disease with heart failure; I50.9 Heart failure, unspecified; E78.5 Hyperlipidemia, unspecified; Z79.899 Other long term (current) drug therapy; W18.30XA Fall on same level, unspecified, initial encounter
CPT/HCPCS: 36415; 70450; 80053; 83735; 84484; 85025; 85610; 85730; 93005; 94760; 96365; 96375; J1953; J3475; J7120

== ENCOUNTER 2023-11-26 05:44 | Emergency (ER) | payer MEDICARE, BC ==
[2023-11-26 06:18] LABS: INR-International Normal Ratio 1.2; Prothrombin Time 15.5 sec (12.0-14.7)
[2023-11-26 06:24] LABS: ALT (SGPT) 41 U/L (8-55); AST (SGOT) 38 U/L (5-34); Albumin 3.1 g/dL (3.4-4.8); Alkaline Phosphatase 99 U/L (40-110); Anion Gap 14 mmol/L (10-20); BUN (Urea Nitrogen) 18 mg/dL (8.4-25.7); Bilirubin, Total 0.7 mg/dL (0.2-1.2); CK (CPK) 20 U/L (30-200); Calc. Creatinine Clearance 0 mL/min (70-130); Calcium 8.3 mg/dL (7.8-10.44); Carbon Dioxide 22 mmol/L (23-31); Chloride 108 mmol/L (98-107); Estimated GFR 67; Globulin 3.3 g/dL (2.4-3.5); Glucose 95 mg/dL (83-110); Lipase 14 U/L (8-78); Potassium 3.5 mmol/L (3.5-5.1); Protein, Total 6.4 g/dL (5.8-8.1); Sodium 140 mmol/L (136-145)
[2023-11-26 06:25] LABS: Troponin I Less than 0.010 ng/mL (< 0.028)
[2023-11-26 06:33] LABS: Hematocrit 24.4 % (42.0-52.0); Hemoglobin 8.3 g/dL (14.0-18.0); Mean Corpuscular HGB CONC 33.9 g/dL (32.0-36.0); Mean Corpuscular Hemoglobin 36.6 pg (27.0-31.0); Mean Corpuscular Volume 107.8 fl (78.0-98.0); Mean Platelet Volume 11.8 fL (7.4-10.4); Platelet Count 77 10x3/uL (130-400); RBC Distribution Width 15.9 % (11.5-14.5); Red Blood Cell (RBC) Count 2.27 mill/uL (4.70-6.10); White Blood Cell (WBC) Count 3.5 10x3/uL (4.8-10.8)
[2023-11-26 06:39] LABS: Anisocytosis SLIGHT = 6-15 cells (100X) (0-5/hpf); Band 2 % (5-11); Lymphocytes 20 % (21-51); MDiff Complete? YES; Manual Diff?? YES; Monocytes 4 % (0-10); Neutrophil 74 % (42-75); Platelet Adequacy Comment Appears Decreased
[2023-11-26 06:40] LABS: Macrocytosis SLIGHT = 6-15 cells (100X) (0-5/hpf)
[2023-11-26 07:02] LABS: SARS-CoV-2 NAA Rapid Test Not Detected (NotDetected)
[2023-11-26 07:19] LABS: Magnesium 1.5 mg/dL (1.6-2.6)
[2023-11-26] MEDS ORDERED: Lactated Ringer's 1,000 ML ONE (07:38)
[2023-11-26] MEDS ORDERED: Ipratropium/Albuterol 3 ML NEB ONE (07:38)
[2023-11-26] MEDS ORDERED: Magnesium 2 GM/50 ML BAG (IN WATER) ONE (07:38)
[2023-11-26 08:32] LABS: Hemoglobin 8.1 g/dL (14.0-18.0)
[2023-11-26 08:33] LABS: Hematocrit 23.8 % (42.0-52.0)
[2023-11-26] MEDS ORDERED: Pantoprazole 40 MG VIAL ONE (08:37)
== END 2023-11-26 10:33 | disposition short-term general hospital (02) ==
LOC: MADERS 05:44
DX: R57.1 Hypovolemic shock (principal); I62.03 Nontraumatic chronic subdural hemorrhage; E86.0 Dehydration; R19.7 Diarrhea, unspecified; K92.2 Gastrointestinal hemorrhage, unspecified; D61.818 Other pancytopenia; I11.0 Hypertensive heart disease with heart failure; I50.9 Heart failure, unspecified; I48.91 Unspecified atrial fibrillation; Z79.899 Other long term (current) drug therapy
CPT/HCPCS: 70450; 71045; 80053; 82274; 82550; 83605; 83690; 83735; 83880; 84443; 84484; 85025; 85610; 85730; 86850; 86870; 86880; 86900; 86901; 86970; 87040; 93005; 94760; 96361; 96365; 96367; C9113; J3475; J7120; J7620

== ENCOUNTER 2023-11-29 20:58 | Inpatient (IN) | payer MEDICARE, BC ==
[2023-11-29 22:19] VITALS: BMI 27.9
[2023-11-29] MEDS: Ciprofloxacin 500 MG TAB PO SCH (22:51)
[2023-11-29] MEDS: Atorvastatin Calcium 40 MG TAB PO SCH (22:52)
[2023-11-29] MEDS: levETIRAcetam 500 MG TAB PO SCH (22:52)
[2023-11-29] MEDS: Ipratropium/Albuterol 3 ML NEB NEB PRN (22:58)
[2023-11-29] MEDS ORDERED: Ondansetron ODT 4 MG TAB PO PRN (23:24)
[2023-11-29] MEDS ORDERED: Diphenoxylate HCl/Atropine Tablet PO PRN (23:24)
[2023-11-30] MEDS: Ciprofloxacin 500 MG TAB PO SCH (05:34)
[2023-11-30] MEDS ORDERED: Potassium Chloride 20 MEQ TAB PO SCH ×2 (08:00)
[2023-11-30] MEDS ORDERED: Carvedilol 3.125 MG TAB PO SCH (08:00)
[2023-11-30] MEDS: Ferrous Sulfate 325 MG TAB PO SCH (08:47)
[2023-11-30] MEDS: levETIRAcetam 500 mg/5 ml Oral Solution PO SCH (08:47)
[2023-11-30] MEDS: Dicyclomine 10 MG CAP PO SCH (08:47)
[2023-11-30] MEDS: Cholecalciferol 1,000 UNITS (25 MCG) TAB PO SCH (08:47)
[2023-11-30] MEDS: Potassium Bicarbonate/Cit Ac 20 MEQ TAB PO SCH (08:47)
[2023-11-30] MEDS: Saccharomyces boulardii 250 MG CAP PO SCH (08:47)
[2023-11-30] MEDS: Folic Acid 1 MG TAB PO SCH (08:47)
[2023-11-30 09:40] LABS: Hematocrit 22.9 % (42.0-52.0); Mean Corpuscular HGB CONC 34.8 g/dL (32.0-36.0); Mean Corpuscular Hemoglobin 37.2 pg (27.0-31.0); Mean Corpuscular Volume 107.1 fl (78.0-98.0); Mean Platelet Volume 9.1 fL (7.4-10.4); Platelet Count 202 10x3/uL (130-400); RBC Distribution Width 16.1 % (11.5-14.5); Red Blood Cell (RBC) Count 2.14 mill/uL (4.70-6.10); White Blood Cell (WBC) Count 2.6 10x3/uL (4.8-10.8)
[2023-11-30 09:50] LABS: Anion Gap 14 mmol/L (10-20); BUN (Urea Nitrogen) 5 mg/dL (8.4-25.7); Calc. Creatinine Clearance 88 mL/min (70-130); Calcium 7.9 mg/dL (7.8-10.44); Carbon Dioxide 23 mmol/L (23-31); Chloride 109 mmol/L (98-107); Estimated GFR 88; Glucose 90 mg/dL (83-110); Potassium 3.8 mmol/L (3.5-5.1); Sodium 142 mmol/L (136-145)
[2023-11-30] MEDS: Atorvastatin Calcium 40 MG TAB PO SCH (21:01)
[2023-12-01] MEDS: Acetaminophen 325 MG TAB PO PRN (23:23)
[2023-12-02 06:59] LABS: Anion Gap 9 mmol/L (10-20); BUN (Urea Nitrogen) 7 mg/dL (8.4-25.7); Calc. Creatinine Clearance 93 mL/min (70-130); Calcium 8.4 mg/dL (7.8-10.44); Carbon Dioxide 28 mmol/L (23-31); Chloride 108 mmol/L (98-107); Estimated GFR 90; Glucose 92 mg/dL (83-110); Potassium 3.8 mmol/L (3.5-5.1); Sodium 141 mmol/L (136-145)
[2023-12-02 07:09] LABS: Mean Corpuscular HGB CONC 33.4 g/dL (32.0-36.0); Mean Corpuscular Hemoglobin 36.7 pg (27.0-31.0); Mean Corpuscular Volume 109.7 fl (78.0-98.0); Mean Platelet Volume 8.8 fL (7.4-10.4); Platelet Count 222 10x3/uL (130-400); RBC Distribution Width 16.2 % (11.5-14.5); Red Blood Cell (RBC) Count 2.18 mill/uL (4.70-6.10); White Blood Cell (WBC) Count 2.6 10x3/uL (4.8-10.8)
[2023-12-02] MEDS ORDERED: Acetaminophen 325 MG TAB PO PRN (12:57)
[2023-12-02] MEDS: Atorvastatin Calcium 10 MG TAB PO SCH (20:04)
[2023-12-04 07:40] VITALS: BP 107/65; TEMP 98.1
== END 2023-12-04 12:00 | disposition home health service (06) | DRG 947 ==
LOC: MADMS 20:58
PROVIDERS: ADMIT Family Medicine; ATTEND Family Medicine
DX: R53.81 Other malaise (principal); D61.810 Antineoplastic chemotherapy induced pancytopenia; A02.0 Salmonella enteritis; C90.00 Multiple myeloma not having achieved remission; D64.9 Anemia, unspecified; E87.6 Hypokalemia; S06.5X0S Traumatic subdural hemorrhage without loss of consciousness, sequela; I11.0 Hypertensive heart disease with heart failure; I50.9 Heart failure, unspecified; Z79.899 Other long term (current) drug therapy
CPT/HCPCS: 36415; 80048; 85027; 94640; J7620

== ENCOUNTER 2023-12-12 20:29 | Emergency (ER) | payer MEDICARE, BC ==
[2023-12-12 21:14] LABS: Hematocrit 35.9 % (42.0-52.0); Hemoglobin 11.9 g/dL (14.0-18.0); Mean Corpuscular Hemoglobin 36.1 pg (27.0-31.0); Mean Corpuscular Volume 109.4 fl (78.0-98.0); Mean Platelet Volume 8.4 fL (7.4-10.4); Platelet Count 175 10x3/uL (130-400); RBC Distribution Width 16.5 % (11.5-14.5); Red Blood Cell (RBC) Count 3.28 mill/uL (4.70-6.10); White Blood Cell (WBC) Count 10.4 10x3/uL (4.8-10.8)
[2023-12-12 21:25] LABS: ALT (SGPT) 27 U/L (8-55); AST (SGOT) 25 U/L (5-34); Albumin 3.8 g/dL (3.4-4.8); Alkaline Phosphatase 100 U/L (40-110); Anion Gap 19 mmol/L (10-20); BUN (Urea Nitrogen) 20 mg/dL (8.4-25.7); Bilirubin, Total 0.4 mg/dL (0.2-1.2); Calc. Creatinine Clearance 0 mL/min (70-130); Carbon Dioxide 19 mmol/L (23-31); Chloride 107 mmol/L (98-107); Estimated GFR 48; Globulin 4.4 g/dL (2.4-3.5); Glucose 133 mg/dL (83-110); Lipase 27 U/L (8-78); Potassium 3.1 mmol/L (3.5-5.1); Protein, Total 8.2 g/dL (5.8-8.1); Sodium 142 mmol/L (136-145); Troponin I Less than 0.010 ng/mL (< 0.028)
[2023-12-12 21:27] LABS: #Lymphocytes 0.9 thou/uL (1.20-3.40); #Monocytes 0.3 thou/uL (0.11-0.59); #Neutrophils 9.1 thou/uL (1.40-6.50); %Basophils 0.3 % (0.0-1.0); %Lymphocytes 9.1 % (21.0-51.0); %Monocytes 3.3 % (0.0-10.0); %Neutrophils 87.4 % (42.0-75.0); MDiff Complete? YES; Macrocytosis SLIGHT = 6-15 cells (100X) (0-5/hpf); Platelet Adequacy Comment Appears Adequate
[2023-12-12] MEDS ORDERED: Potassium Chloride 20 MEQ TAB ONE (22:39)
== END 2023-12-12 22:58 | disposition home or self-care (01) ==
LOC: MADERS 20:29
DX: E86.0 Dehydration (principal); R19.7 Diarrhea, unspecified; E87.6 Hypokalemia; R11.2 Nausea with vomiting, unspecified; I11.0 Hypertensive heart disease with heart failure; I50.9 Heart failure, unspecified; E78.5 Hyperlipidemia, unspecified; Z79.899 Other long term (current) drug therapy
CPT/HCPCS: 74018; 80053; 83605; 83690; 84484; 85025; 93005

== ENCOUNTER 2023-12-13 15:03 | Emergency (ER) | payer MEDICARE, BC ==
[2023-12-13 15:53] LABS: #Lymphocytes 1.1 thou/uL (1.20-3.40); #Monocytes 0.5 thou/uL (0.11-0.59); #Neutrophils 8.1 thou/uL (1.40-6.50); %Basophils 0.2 % (0.0-1.0); %Lymphocytes 11.7 % (21.0-51.0); %Neutrophils 83.1 % (42.0-75.0); Hematocrit 36.4 % (42.0-52.0); Hemoglobin 11.9 g/dL (14.0-18.0); Mean Corpuscular HGB CONC 32.7 g/dL (32.0-36.0); Mean Corpuscular Hemoglobin 36.5 pg (27.0-31.0); Mean Corpuscular Volume 111.6 fl (78.0-98.0); Mean Platelet Volume 8.5 fL (7.4-10.4); Platelet Count 172 10x3/uL (130-400); RBC Distribution Width 16.8 % (11.5-14.5); Red Blood Cell (RBC) Count 3.26 mill/uL (4.70-6.10); White Blood Cell (WBC) Count 9.8 10x3/uL (4.8-10.8)
[2023-12-13 16:08] LABS: ALT (SGPT) 23 U/L (8-55); AST (SGOT) 15 U/L (5-34); Albumin 3.7 g/dL (3.4-4.8); Alkaline Phosphatase 93 U/L (40-110); Anion Gap 17 mmol/L (10-20); BUN (Urea Nitrogen) 26 mg/dL (8.4-25.7); Bilirubin, Total 0.5 mg/dL (0.2-1.2); Calc. Creatinine Clearance 0 mL/min (70-130); Calcium 9.7 mg/dL (7.8-10.44); Carbon Dioxide 18 mmol/L (23-31); Chloride 110 mmol/L (98-107); Estimated GFR 30; Globulin 4.5 g/dL (2.4-3.5); Glucose 136 mg/dL (83-110); Lipase 21 U/L (8-78); Magnesium 1.7 mg/dL (1.6-2.6); Potassium 3.1 mmol/L (3.5-5.1); Protein, Total 8.2 g/dL (5.8-8.1); Sodium 142 mmol/L (136-145)
[2023-12-13 16:09] LABS: Macrocytosis SLIGHT = 6-15 cells (100X) (0-5/hpf)
[2023-12-13 16:10] LABS: Anisocytosis SLIGHT = 6-15 cells (100X) (0-5/hpf); Polychromasia SLIGHT = 2-3 cells (100X) (0-2/hpf)
[2023-12-13] MEDS ORDERED: Sodium Chloride 0.9% 500 ML ONE (16:10)
[2023-12-13] MEDS ORDERED: Potassium Chloride 20 MEQ TAB ONE ×2 (16:16→16:22)
== END 2023-12-13 20:07 | disposition short-term general hospital (02) ==
LOC: MADERS 15:03
DX: S06.5XAA Traumatic subdural hemorrhage with loss of consciousness status unknown, initial encounter (principal); N17.9 Acute kidney failure, unspecified; E87.6 Hypokalemia; I21.9 Acute myocardial infarction, unspecified; I10 Essential (primary) hypertension; W19.XXXA Unspecified fall, initial encounter; Z79.899 Other long term (current) drug therapy
CPT/HCPCS: 36415; 70450; 71260; 72125; 74177; 80053; 83690; 83735; 85025; 93005; J7030

== ENCOUNTER 2023-12-18 20:14 | Inpatient (IN) | payer MEDICARE, BC ==
[2023-12-18 20:45] VITALS: BMI 25.4
[2023-12-19] MEDS: Ferrous Sulfate 325 MG TAB PO SCH (08:32)
[2023-12-19] MEDS: Cholecalciferol 1,000 UNITS (25 MCG) TAB PO SCH (08:32)
[2023-12-19] MEDS: Midodrine HCl 5 MG TAB PO SCH (08:32)
[2023-12-19] MEDS: Folic Acid 1 MG TAB PO SCH (08:32)
[2023-12-19] MEDS: Cyanocobalamin (Vitamin B-12) 1,000 MCG TAB PO SCH (08:32)
[2023-12-19] MEDS: levETIRAcetam 500 mg/5 ml Oral Solution PO SCH (08:32)
[2023-12-19] MEDS: Saccharomyces boulardii 250 MG CAP PO SCH (08:32)
[2023-12-19] MEDS: Potassium Bicarbonate/Cit Ac 20 MEQ TAB PO SCH (08:33)
[2023-12-19] MEDS: PATIENT'S HOME MEDICATION PO SCH (08:33)
[2023-12-19] MEDS: PHOS-NAK 1 PKT PACK PO SCH (16:48)
[2023-12-19] MEDS: Atorvastatin Calcium 10 MG TAB PO SCH (20:27)
[2023-12-20 05:40] LABS: Hemoglobin 9.1 g/dL (14.0-18.0); Mean Corpuscular HGB CONC 33.8 g/dL (32.0-36.0); Mean Corpuscular Hemoglobin 36.8 pg (27.0-31.0); Mean Corpuscular Volume 109.1 fl (78.0-98.0); Mean Platelet Volume 9.7 fL (7.4-10.4); Platelet Count 120 10x3/uL (130-400); RBC Distribution Width 16.1 % (11.5-14.5); Red Blood Cell (RBC) Count 2.47 mill/uL (4.70-6.10); White Blood Cell (WBC) Count 3.5 10x3/uL (4.8-10.8)
[2023-12-20 06:52] LABS: BUN (Urea Nitrogen) 10 mg/dL (8.4-25.7); Calc. Creatinine Clearance 80 mL/min (70-130); Estimated GFR 90; Glucose 87 mg/dL (83-110)
[2023-12-20 06:53] LABS: Calcium 8.5 mg/dL (7.6-10.4)
[2023-12-20 11:19] LABS: Chloride 110 mmol/L (98-107); Potassium 3.4 mmol/L (3.5-5.1); Sodium 139 mmol/L (136-145)
[2023-12-20 11:20] LABS: Anion Gap 11 mmol/L (10-20); Carbon Dioxide 21 mmol/L (23-31)
[2023-12-22] MEDS: Ergocalciferol 1.25 MG(50,000 UNITS) CAP PO SCH (08:21)
[2023-12-22] MEDS: Ipratropium/Albuterol 3 ML NEB NEB PRN (20:45)
[2023-12-23 05:51] LABS: Phosphorus 2.7 mg/dL (2.3-4.7)
[2023-12-23 06:01] LABS: Anion Gap 17 mmol/L (10-20); BUN (Urea Nitrogen) 11 mg/dL (8.4-25.7); Calc. Creatinine Clearance 60 mL/min (70-130); Calcium 8.9 mg/dL (7.8-10.44); Carbon Dioxide 22 mmol/L (23-31); Chloride 102 mmol/L (98-107); Estimated GFR 73; Glucose 91 mg/dL (83-110); Potassium 4.3 mmol/L (3.5-5.1); Sodium 137 mmol/L (136-145)
[2023-12-23 14:49] LABS: Influenza A by NAA DETECTED (NotDetected); Influenza B by NAA Not Detected (NotDetected); SARS-CoV-2 NAA Rapid Test Not Detected (NotDetected)
[2023-12-23] MEDS ORDERED: Simethicone Chewable 80 MG TAB PO PRN (19:09)
[2023-12-23] MEDS: Loperamide HCl 2 MG CAP PO PRN (19:10)
[2023-12-23] MEDS: Hyoscyamine SL 0.125 MG TAB SL PRN (19:26)
[2023-12-23] MEDS: Acetaminophen 325 MG TAB PO PRN (19:34)
[2023-12-23] MEDS: Oseltamivir 75 MG CAP PO SCH (19:40)
[2023-12-24] MEDS: Oseltamivir 6 MG/ML ORAL SUSP PO SCH (20:57)
[2023-12-24] MEDS: Oseltamivir 6 MG/ML ORAL SUSP ONE (21:14)
[2023-12-25] MEDS: Oseltamivir 6 MG/ML ORAL SUSP ONE (08:21)
[2023-12-26] MEDS ORDERED: Colestipol 1 GM TAB PO SCH (21:00)
[2023-12-27] MEDS ORDERED: Colestipol 1 GM TAB PO SCH (07:30)
[2023-12-27] MEDS: Colestipol 1 GM TAB PO SCH ×2 (09:58→18:32)
[2023-12-27] MEDS ORDERED: levETIRAcetam 500 mg/5 ml Oral Solution PO SCH (18:30)
[2023-12-27] MEDS: Oseltamivir 6 MG/ML ORAL SUSP PO SCH (20:36)
[2023-12-27] MEDS: levETIRAcetam 500 mg/5 ml Oral Solution PO SCH (20:38)
[2023-12-27] MEDS: Ferrous Sulfate 325 MG TAB PO SCH (20:41)
[2023-12-27] MEDS: Midodrine HCl 5 MG TAB PO SCH (20:41)
[2023-12-28 05:44] LABS: Hematocrit 28.3 % (42.0-52.0); Hemoglobin 9.3 g/dL (14.0-18.0); Mean Corpuscular Hemoglobin 36.2 pg (27.0-31.0); Mean Corpuscular Volume 109.6 fl (78.0-98.0); Mean Platelet Volume 9.8 fL (7.4-10.4); Platelet Count 146 10x3/uL (130-400); RBC Distribution Width 15.5 % (11.5-14.5); Red Blood Cell (RBC) Count 2.58 mill/uL (4.70-6.10); White Blood Cell (WBC) Count 3.2 10x3/uL (4.8-10.8)
[2023-12-28 05:47] LABS: Anion Gap 19 mmol/L (10-20); BUN (Urea Nitrogen) 11 mg/dL (8.4-25.7); Calc. Creatinine Clearance 69 mL/min (70-130); Calcium 8.5 mg/dL (7.8-10.44); Carbon Dioxide 20 mmol/L (23-31); Chloride 103 mmol/L (98-107); Estimated GFR 86; Glucose 93 mg/dL (83-110); Potassium 4.3 mmol/L (3.5-5.1); Sodium 138 mmol/L (136-145)
[2023-12-28] MEDS: Cholecalciferol 1,000 UNITS (25 MCG) TAB PO SCH (05:50)
[2023-12-28] MEDS: Cyanocobalamin (Vitamin B-12) 1,000 MCG TAB PO SCH (05:50)
[2023-12-28] MEDS: levETIRAcetam 500 mg/5 ml Oral Solution PO SCH (05:51)
[2023-12-28] MEDS: Saccharomyces boulardii 250 MG CAP PO SCH (05:51)
[2023-12-28] MEDS: Folic Acid 1 MG TAB PO SCH (05:51)
[2023-12-28] MEDS: Potassium Bicarbonate/Cit Ac 20 MEQ TAB PO SCH (05:54)
[2023-12-28] MEDS: Oseltamivir 6 MG/ML ORAL SUSP PO SCH (05:55)
[2023-12-28] MEDS: PHOS-NAK 1 PKT PACK PO SCH ×2 (05:55→10:32)
[2023-12-28] MEDS ORDERED: Midodrine HCl 5 MG TAB PO SCH (06:30)
[2023-12-28] MEDS ORDERED: PHOS-NAK 1 PKT PACK PO SCH (06:30)
[2023-12-28] MEDS: Colestipol 1 GM TAB PO SCH (07:47)
[2023-12-29] MEDS: Ergocalciferol 1.25 MG(50,000 UNITS) CAP PO SCH (06:05)
[2023-12-29] MEDS: PHOS-NAK 1 PKT PACK PO SCH (11:52)
[2023-12-29] MEDS ORDERED: PHOS-NAK 1 PKT PACK PO SCH (12:00)
[2023-12-29] MEDS ORDERED: Potassium Bicarbonate/Cit Ac 20 MEQ TAB PO SCH (17:00)
[2023-12-29] MEDS: Ferrous Sulfate 325 MG TAB PO SCH (18:53)
[2023-12-29] MEDS: Potassium Bicarbonate/Cit Ac 20 MEQ TAB PO SCH (18:53)
[2023-12-30] MEDS: Folic Acid 1 MG TAB PO SCH (09:56)
[2023-12-30] MEDS: Cyanocobalamin (Vitamin B-12) 1,000 MCG TAB PO SCH (09:56)
[2023-12-30] MEDS: Cholecalciferol 1,000 UNITS (25 MCG) TAB PO SCH (09:56)
[2023-12-30] MEDS: Cholestyramine/Aspartame 4 gm Packet PO SCH (17:46)
[2023-12-31] MEDS: Ondansetron ODT 4 MG TAB PO PRN (08:23)
[2024-01-01 10:03] VITALS: BP 107/66; TEMP 98.3
[2024-01-05] MEDS ORDERED: Ergocalciferol 1.25 MG(50,000 UNITS) CAP PO SCH (09:00)
== END 2024-01-01 09:45 | disposition home or self-care (01) | DRG 947 ==
LOC: MADMS 20:14
PROVIDERS: ADMIT Family Medicine; ATTEND Family Medicine
DX: R53.81 Other malaise (principal); D61.810 Antineoplastic chemotherapy induced pancytopenia; I24.0 Acute coronary thrombosis not resulting in myocardial infarction; C90.00 Multiple myeloma not having achieved remission; E87.8 Other disorders of electrolyte and fluid balance, not elsewhere classified; S06.5XAD Traumatic subdural hemorrhage with loss of consciousness status unknown, subsequent encounter; E78.5 Hyperlipidemia, unspecified; I50.9 Heart failure, unspecified; I11.0 Hypertensive heart disease with heart failure; I25.2 Old myocardial infarction; Z79.899 Other long term (current) drug therapy; J10.1 Influenza due to other identified influenza virus with other respiratory manifestations; E87.6 Hypokalemia; E83.42 Hypomagnesemia; E83.39 Other disorders of phosphorus metabolism; K52.9 Noninfective gastroenteritis and colitis, unspecified; I95.1 Orthostatic hypotension; T45.1X5A Adverse effect of antineoplastic and immunosuppressive drugs, initial encounter
CPT/HCPCS: 36415; 80048; 80177; 82565; 84100; 85027; 94640; J7620; Q0162

== ENCOUNTER 2024-03-15 12:45 | Emergency (ER) | payer MEDICARE, BC ==
[~2024-03-15 12:45] MED LIST changes: +D5 1/2 NS w/20 mEq KCL 1,000 ML BAG ONE; -Lactated Ringer's 1,000 ML BAG ONE
[2024-03-15] MEDS ORDERED: Cefepime 2 GM VIAL ONE (13:26)
[2024-03-15] MEDS ORDERED: Sodium Chloride 0.9% 1,000 ML ONE (13:26)
[2024-03-15] MEDS ORDERED: Sodium Chloride 0.9% 100 ML ONE ×2 (13:26→16:16)
[2024-03-15 13:44] LABS: ALT (SGPT) 152 U/L (8-55); AST (SGOT) 235 U/L (5-34); Albumin 2.5 g/dL (3.4-4.8); Alkaline Phosphatase 493 U/L (40-110); Anion Gap 18 mmol/L (10-20); BUN (Urea Nitrogen) 7 mg/dL (8.4-25.7); Bilirubin, Total 2.7 mg/dL (0.2-1.2); Calc. Creatinine Clearance 0 mL/min (70-130); Calcium 7.7 mg/dL (7.8-10.44); Carbon Dioxide 20 mmol/L (23-31); Chloride 101 mmol/L (98-107); Estimated GFR 75; Globulin 4.2 g/dL (2.4-3.5); Glucose 89 mg/dL (83-110); Lipase 9 U/L (8-78); Magnesium 1.2 mg/dL (1.6-2.6); Protein, Total 6.7 g/dL (5.8-8.1); Sodium 136 mmol/L (136-145)
[2024-03-15 13:47] LABS: Band 10 % (5-11); Hematocrit 24.2 % (42.0-52.0); Hemoglobin 7.8 g/dL (14.0-18.0); Hypochromia SLIGHT = 6-15 cells (100X) (0-5/hpf); Lymphocytes 11 % (21-51); MDiff Complete? YES; Macrocytosis SLIGHT = 6-15 cells (100X) (0-5/hpf); Mean Corpuscular HGB CONC 32.1 g/dL (32.0-36.0); Mean Platelet Volume 11.7 fL (7.4-10.4); Monocytes 3 % (0-10); Neutrophil 76 % (42-75); Platelet Adequacy Comment Appears Decreased; Platelet Count 63 10x3/uL (130-400); RBC Distribution Width 15.4 % (11.5-14.5); Red Blood Cell (RBC) Count 2.22 mill/uL (4.70-6.10)
[2024-03-15 13:49] LABS: Potassium 2.5 mmol/L (3.5-5.1)
[2024-03-15 14:06] LABS: SARS-CoV-2 E Target Negative; SARS-CoV-2 N2 Target Negative; SARS-CoV-2 NAA Rapid Test Not Detected (NotDetected); SARS-CoV-2 RdRP gene Negative
[2024-03-15] MEDS ORDERED: Potassium Bicarbonate/Cit Ac 20 MEQ TAB ONE (14:06)
[2024-03-15] MEDS ORDERED: Magnesium 2 GM/50 ML BAG (IN WATER) ONE (14:22)
[2024-03-15] MEDS ORDERED: Sodium Chloride 0.9% 250 ML 250 ML ONE (14:23)
[2024-03-15] MEDS ORDERED: Vancomycin 1 GM VIAL ONE (14:23)
[2024-03-15 15:31] LABS: Bilirubin Moderate (Negative); Blood, Urine Trace (Negative); Glucose, Urine (Dipstick) Negative (Negative); Ketone, Urine Negative (Negative); Leukocyte Negative (Negative); Nitrite Negative (Negative); Protein, Urine (Dipstick) 30 mg/dL (Neg-Trace); Specific Gravity, Urine 1.015 (1.005-1.030)
[2024-03-15 15:40] LABS: Clarity Hazy (Clear)
[2024-03-15 15:41] LABS: Bacteria/HPF 1+ HPF (None Seen); CAUTI Indications for Culture Fever or rigors; RBC/HPF 0-3 HPF (0-3); Squamous Epithelial 0-3 HPF (0-3); Urine Culture Reflex No No; WBC/HPF 0-3 HPF (0-3)
[2024-03-15 16:04] LABS: Lactic Acid 0.9 mmol/L (0.5-2.2)
[2024-03-15] MEDS ORDERED: Vancomycin HCl 500 MG VIAL ONE (16:16)
== END 2024-03-15 18:10 | disposition short-term general hospital (02) ==
LOC: MADERS 12:45
DX: A41.9 Sepsis, unspecified organism (principal); D70.8 Other neutropenia; E87.6 Hypokalemia; E83.42 Hypomagnesemia; J18.9 Pneumonia, unspecified organism; I11.0 Hypertensive heart disease with heart failure; I50.9 Heart failure, unspecified; E78.5 Hyperlipidemia, unspecified; Z79.899 Other long term (current) drug therapy
CPT/HCPCS: 71045; 80053; 81001; 83605; 83690; 83735; 83880; 84484; 85025; 87040; 87077; 87086; 87149 ×2; 87186; 87804 ×2; 93005; 94760; 96361; 96365; 96366; 96367; 99285; U0002; 36415; J0692; J3370; J3475; J3480; J3490; J7050

== ENCOUNTER 2024-04-15 02:57 | Emergency (ER) | payer MEDICARE, BC ==
[2024-04-15 03:15] LABS: #Lymphocytes 1.1 thou/uL (1.20-3.40); #Monocytes 0.2 thou/uL (0.11-0.59); #Neutrophils 0.9 thou/uL (1.40-6.50); %Basophils 1.2 % (0.0-1.0); %Eosinophils 2.1 % (0.0-10.0); %Lymphocytes 49.4 % (21.0-51.0); %Monocytes 6.8 % (0.0-10.0); %Neutrophils 40.5 % (42.0-75.0); Hematocrit 28.5 % (42.0-52.0); Hemoglobin 9.2 g/dL (14.0-18.0); Mean Corpuscular HGB CONC 32.4 g/dL (32.0-36.0); Mean Corpuscular Hemoglobin 36.2 pg (27.0-31.0); Mean Platelet Volume 7.7 fL (7.4-10.4); Platelet Count 109 10x3/uL (130-400); RBC Distribution Width 16.9 % (11.5-14.5); Red Blood Cell (RBC) Count 2.55 mill/uL (4.70-6.10); White Blood Cell (WBC) Count 2.1 10x3/uL (4.8-10.8)
[2024-04-15 03:34] LABS: Troponin I Less than 0.010 ng/mL (< 0.028)
[2024-04-15 03:39] LABS: ALT (SGPT) 32 U/L (8-55); AST (SGOT) 37 U/L (5-34); Albumin 3.3 g/dL (3.4-4.8); Alkaline Phosphatase 133 U/L (40-110); Anion Gap 17 mmol/L (10-20); BUN (Urea Nitrogen) 10 mg/dL (8.4-25.7); Bilirubin, Total 0.5 mg/dL (0.2-1.2); Calc. Creatinine Clearance 0 mL/min (70-130); Carbon Dioxide 21 mmol/L (23-31); Chloride 108 mmol/L (98-107); Estimated GFR 88; Glucose 86 mg/dL (83-110); Magnesium 1.6 mg/dL (1.6-2.6); Potassium 3.6 mmol/L (3.5-5.1); Protein, Total 7.3 g/dL (5.8-8.1); Sodium 142 mmol/L (136-145)
[2024-04-15] MEDS ORDERED: Aspirin 325 MG TAB ONE (03:50)
[2024-04-15] MEDS ORDERED: Sodium Chloride 0.9% 500 ML ONE (03:50)
[2024-04-15] MEDS ORDERED: Iopamidol 370 76% 100 ML VIAL ONE (09:00)
== END 2024-04-15 05:45 | disposition short-term general hospital (02) ==
LOC: MADERS 02:57
DX: G45.9 Transient cerebral ischemic attack, unspecified (principal); H53.452 Other localized visual field defect, left eye; I11.0 Hypertensive heart disease with heart failure; I50.9 Heart failure, unspecified; E78.5 Hyperlipidemia, unspecified; Z79.899 Other long term (current) drug therapy
CPT/HCPCS: 0042T; 36416; 70450; 71045; 80053; 83735; 83880; 84484; 85025; 93005; J7030; Q9967

== ENCOUNTER → 2024-05-03 | Emergency (ER) | payer MEDICARE, BC ==
[~2024-05-03] MED LIST changes: +Bacitracin 1 PK ONE; -D5 1/2 NS w/20 mEq KCL 1,000 ML BAG ONE; +HYDROcodone/Acetaminophen 5/325 mg Tablet ONE
== END ==
LOC: MADERS 22:56
DX: S51.812A Laceration without foreign body of left forearm, initial encounter (principal); S09.90XA Unspecified injury of head, initial encounter; I11.0 Hypertensive heart disease with heart failure; I50.9 Heart failure, unspecified; E78.00 Pure hypercholesterolemia, unspecified; Z79.01 Long term (current) use of anticoagulants; Z79.899 Other long term (current) drug therapy; W19.XXXA Unspecified fall, initial encounter
CPT/HCPCS: 70450

== ENCOUNTER 2024-05-12 17:08 | Emergency (ER) | payer MEDICARE, BC ==
[2024-05-12] MEDS ORDERED: Lactated Ringer's 1,000 ML ONE (18:16)
[2024-05-12 18:23] LABS: Anisocytosis SLIGHT = 6-15 cells (100X) (0-5/hpf); Band 22 % (5-11); Hematocrit 30.2 % (42.0-52.0); Hypochromia SLIGHT = 6-15 cells (100X) (0-5/hpf); Lymphocytes 6 % (21-51); MDiff Complete? YES; Macrocytosis SLIGHT = 6-15 cells (100X) (0-5/hpf); Mean Corpuscular HGB CONC 33.1 g/dL (32.0-36.0); Mean Corpuscular Hemoglobin 35.7 pg (27.0-31.0); Mean Corpuscular Volume 108.1 fl (78.0-98.0); Mean Platelet Volume 8.8 fL (7.4-10.4); Monocytes 1 % (0-10); Neutrophil 70 % (42-75); Platelet Adequacy Comment Appears Decreased; Platelet Count 62 10x3/uL (130-400); RBC Distribution Width 16.5 % (11.5-14.5); Red Blood Cell (RBC) Count 2.79 mill/uL (4.70-6.10); White Blood Cell (WBC) Count 4.6 10x3/uL (4.8-10.8)
[2024-05-12 18:53] LABS: INR-International Normal Ratio 1.1; Prothrombin Time 14.2 sec (12.0-14.7)
[2024-05-12 18:54] LABS: PTT 35.1 sec (22.9-36.1)
[2024-05-12 18:57] LABS: ALT (SGPT) 327 U/L (8-55); AST (SGOT) 278 U/L (5-34); Albumin 2.9 g/dL (3.4-4.8); Alkaline Phosphatase 301 U/L (40-110); Anion Gap 16 mmol/L (10-20); BUN (Urea Nitrogen) 13 mg/dL (8.4-25.7); Bilirubin, Total 1.8 mg/dL (0.2-1.2); Calc. Creatinine Clearance 0 mL/min (70-130); Calcium 8.6 mg/dL (7.8-10.44); Carbon Dioxide 23 mmol/L (23-31); Chloride 104 mmol/L (98-107); Estimated GFR 84; Globulin 4.2 g/dL (2.4-3.5); Glucose 96 mg/dL (83-110); Magnesium 1.1 mg/dL (1.6-2.6); Potassium 3.7 mmol/L (3.5-5.1); Protein, Total 7.1 g/dL (5.8-8.1); Sodium 139 mmol/L (136-145)
[2024-05-12 19:03] LABS: Troponin I Less than 0.010 ng/mL (< 0.028)
[2024-05-12] MEDS ORDERED: Magnesium 2 GM/50 ML BAG (IN WATER) ONE (19:28)
[2024-05-12 19:59] LABS: Influenza A by NAA Not Detected (NotDetected); Influenza B by NAA Not Detected (NotDetected); SARS-CoV-2 NAA Rapid Test Not Detected (NotDetected)
[2024-05-12] MEDS ORDERED: Piperacillin/Tazobactam 4.5 GM VIAL ONE (21:28)
[2024-05-12] MEDS ORDERED: Sodium Chloride 0.9% 100 ML ONE (21:29)
[2024-05-12 23:19] LABS: Bilirubin Negative (Negative); Blood, Urine Negative (Negative); Clarity Clear (Clear); Glucose, Urine (Dipstick) Negative (Negative); Ketone, Urine Negative (Negative); Leukocyte Negative (Negative); Nitrite Negative (Negative); Protein, Urine (Dipstick) 30 mg/dL (Neg-Trace); Urobilinogen 0.2 mg/dL (Less than 2)
[2024-05-12 23:20] LABS: Bacteria/HPF Rare-Few HPF (None Seen); CAUTI Indications for Culture Fever or rigors; RBC/HPF 0-3 HPF (0-3); Squamous Epithelial 0-3 HPF (0-3); WBC/HPF 0-3 HPF (0-3)
[2024-05-12 23:21] LABS: Urine Culture Reflex No No
== END 2024-05-13 00:34 | disposition short-term general hospital (02) ==
LOC: MADERS 17:08
DX: T85.590A Other mechanical complication of bile duct prosthesis, initial encounter (principal); K83.1 Obstruction of bile duct; E83.42 Hypomagnesemia; D61.818 Other pancytopenia; A41.9 Sepsis, unspecified organism; R74.01 Elevation of levels of liver transaminase levels; I11.0 Hypertensive heart disease with heart failure; I50.9 Heart failure, unspecified; E78.5 Hyperlipidemia, unspecified; Z79.899 Other long term (current) drug therapy
CPT/HCPCS: 36415; 71045; 80053; 81001; 83605; 83735; 84484; 85025; 85610; 85730; 87040; 93005; 94760; 96361; 96365; 96367; J2543; J3475; J7120

== ENCOUNTER 2024-07-19 09:54 | Emergency (ER) | payer MEDICARE, BC ==
[2024-07-19] MEDS ORDERED: Lidocaine 4% Patch ONE (10:16)
[2024-07-19 11:01] LABS: Anisocytosis SLIGHT = 6-15 cells (100X) (0-5/hpf); Band 15 % (5-11); Eosinophils 2 % (0-10); Hematocrit 23.3 % (42.0-52.0); Hemoglobin 8.1 g/dL (14.0-18.0); Hypochromia SLIGHT = 6-15 cells (100X) (0-5/hpf); Lymphocytes 15 % (21-51); MDiff Complete? YES; Macrocytosis SLIGHT = 6-15 cells (100X) (0-5/hpf); Mean Corpuscular HGB CONC 34.7 g/dL (32.0-36.0); Mean Corpuscular Hemoglobin 39.6 pg (27.0-31.0); Mean Corpuscular Volume 114.1 fl (78.0-98.0); Monocytes 5 % (0-10); Myelocyte 1 % (0-0); Neutrophil 62 % (42-75); Platelet Adequacy Comment Appears Decreased; Platelet Count 77 10x3/uL (130-400); RBC Distribution Width 15.9 % (11.5-14.5); Red Blood Cell (RBC) Count 2.04 mill/uL (4.70-6.10); White Blood Cell (WBC) Count 2.2 10x3/uL (4.8-10.8)
[2024-07-19 11:03] LABS: ALT (SGPT) 14 U/L (8-55); AST (SGOT) 17 U/L (5-34); Albumin 3.1 g/dL (3.4-4.8); Alkaline Phosphatase 103 U/L (40-110); Anion Gap 16 mmol/L (10-20); BUN (Urea Nitrogen) 17 mg/dL (8.4-25.7); Bilirubin, Total 0.7 mg/dL (0.2-1.2); Calc. Creatinine Clearance 0 mL/min (70-130); Calcium 9.1 mg/dL (7.8-10.44); Carbon Dioxide 20 mmol/L (23-31); Chloride 108 mmol/L (98-107); Estimated GFR 86; Globulin 3.9 g/dL (2.4-3.5); Glucose 109 mg/dL (83-110); Potassium 3.8 mmol/L (3.5-5.1); Sodium 140 mmol/L (136-145)
== END 2024-07-19 11:51 | disposition home or self-care (01) ==
LOC: MADERS 09:54
DX: S22.31XA Fracture of one rib, right side, initial encounter for closed fracture (principal); D61.818 Other pancytopenia; I95.9 Hypotension, unspecified; E78.5 Hyperlipidemia, unspecified; Z79.899 Other long term (current) drug therapy; Z87.891 Personal history of nicotine dependence
CPT/HCPCS: 36415; 70450; 71250; 72125; 80053; 85025

== ENCOUNTER 2024-08-12 17:19 | Emergency (ER) | payer MEDICARE, BC ==
[2024-08-12 18:15] LABS: ALT (SGPT) 73 U/L (8-55); AST (SGOT) 57 U/L (5-34); Albumin 2.8 g/dL (3.4-4.8); Alkaline Phosphatase 104 U/L (40-110); Anion Gap 14 mmol/L (10-20); BUN (Urea Nitrogen) 14 mg/dL (8.4-25.7); Bilirubin, Total 1.2 mg/dL (0.2-1.2); Calc. Creatinine Clearance 0 mL/min (70-130); Calcium 8.2 mg/dL (7.8-10.44); Carbon Dioxide 20 mmol/L (23-31); Chloride 107 mmol/L (98-107); Estimated GFR 77; Globulin 3.7 g/dL (2.4-3.5); Glucose 116 mg/dL (83-110); Protein, Total 6.5 g/dL (5.8-8.1); Sodium 138 mmol/L (136-145)
[2024-08-12 18:19] LABS: Anisocytosis SLIGHT = 6-15 cells (100X) (0-5/hpf); Band 19 % (5-11); Hematocrit 21.6 % (42.0-52.0); Hemoglobin 7.4 g/dL (14.0-18.0); Hypochromia SLIGHT = 6-15 cells (100X) (0-5/hpf); Lymphocytes 8 % (21-51); MDiff Complete? YES; Mean Corpuscular HGB CONC 34.5 g/dL (32.0-36.0); Mean Corpuscular Volume 116.1 fl (78.0-98.0); Mean Platelet Volume 10.1 fL (7.4-10.4); Microcytosis SLIGHT = 6-15 cells (100X) (0-5/hpf); Neutrophil 73 % (42-75); Platelet Adequacy Comment Appears Decreased; Platelet Count 77 10x3/uL (130-400); RBC Distribution Width 13.7 % (11.5-14.5); Red Blood Cell (RBC) Count 1.86 mill/uL (4.70-6.10); White Blood Cell (WBC) Count 1.7 10x3/uL (4.8-10.8)
== END 2024-08-12 20:15 | disposition home or self-care (01) ==
LOC: MADERS 17:19
DX: R53.1 Weakness (principal); D64.9 Anemia, unspecified; D70.9 Neutropenia, unspecified; C90.00 Multiple myeloma not having achieved remission; I50.9 Heart failure, unspecified; Z79.899 Other long term (current) drug therapy; Z87.891 Personal history of nicotine dependence
CPT/HCPCS: 36415; 80053; 85025; 87040; 93005; 94760

== ENCOUNTER 2025-07-14 18:44 | Emergency (ER) | payer MEDICARE, BC ==
[2025-07-14 20:34] LABS: Hematocrit 23.4 % (42.0-52.0); Hemoglobin 7.8 g/dL (14.0-18.0); MDiff Complete? YES; Mean Corpuscular Hemoglobin 30.8 pg (27.0-31.0); Mean Corpuscular Volume 93.0 fl (78.0-98.0); Platelet Count 53 10x3/uL (130-400); Red Blood Cell (RBC) Count 2.52 mill/uL (4.70-6.10); White Blood Cell (WBC) Count 2.4 10x3/uL (4.8-10.8)
[2025-07-14] MEDS ORDERED: Acetaminophen 325 MG TAB ONE (20:34)
[2025-07-14 20:42] LABS: INR-International Normal Ratio 1.1; Prothrombin Time 14.0 sec (12.0-14.7)
[2025-07-14 20:43] LABS: PTT 23.9 sec (22.9-36.1)
[2025-07-14 20:50] LABS: ALT (SGPT) 20 U/L (Less than 45); AST (SGOT) 32 U/L (11-34); Albumin 2.9 g/dL (3.1-4.5); Alkaline Phosphatase 56 U/L (40-110); Anion Gap 19 mmol/L (10-20); BUN (Urea Nitrogen) 17 mg/dL (8.4-25.7); Bilirubin, Total 0.3 mg/dL (0.3-1.2); Calc. Creatinine Clearance 0 mL/min (70-130); Calcium 9.3 mg/dL (7.8-10.44); Carbon Dioxide 20 mmol/L (23-31); Chloride 111 mmol/L (98-107); Globulin 4.7 g/dL (2.4-3.5); Glucose 110 mg/dL (83-110); Lipase 24 U/L (8-78); Potassium 3.7 mmol/L (3.5-5.1); Sodium 146 mmol/L (136-145)
[2025-07-14 20:52] LABS: Troponin I 0.021 ng/mL (< 0.028)
[2025-07-14 21:48] LABS: Glucose, Urine (Dipstick) Negative (Negative); Leukocyte Negative (Negative); Protein, Urine (Dipstick) 100 mg/dL (Neg-Trace); Specific Gravity, Urine 1.020 (1.005-1.030)
[2025-07-14 21:51] LABS: CAUTI Indications for Culture Fever or rigors; RBC/HPF 0-3 HPF (0-3); WBC/HPF 0-3 HPF (0-3)
[2025-07-14 21:52] LABS: Urine Culture Reflex No No
== END 2025-07-14 22:23 | disposition home or self-care (01) ==
LOC: MADERS 18:44
DX: R50.9 Fever, unspecified (principal); R05.3 Chronic cough; N18.9 Chronic kidney disease, unspecified; D61.818 Other pancytopenia; I50.82 Biventricular heart failure; I25.2 Old myocardial infarction
CPT/HCPCS: 71045; 80053; 81001; 83605; 83690; 84484; 85025; 85610; 85730; 87040; 87428; 93005; 94760; J7120; 96360; 96361

== ENCOUNTER 2025-07-23 10:05 | Emergency (ER) | payer MEDICARE, BC ==
[2025-07-23 11:18] LABS: Hematocrit 21.1 % (42.0-52.0); Hemoglobin 7.1 g/dL (14.0-18.0); Mean Corpuscular Hemoglobin 31.0 pg (27.0-31.0); Mean Corpuscular Volume 92.4 fl (78.0-98.0); Platelet Count 53 10x3/uL (130-400); Red Blood Cell (RBC) Count 2.28 mill/uL (4.70-6.10); White Blood Cell (WBC) Count 2.8 10x3/uL (4.8-10.8)
[2025-07-23 11:30] LABS: ALT (SGPT) 191 U/L (Less than 45); AST (SGOT) 128 U/L (11-34); Albumin 2.7 g/dL (3.1-4.5); Alkaline Phosphatase 161 U/L (40-110); Anion Gap 21 mmol/L (10-20); BUN (Urea Nitrogen) 26 mg/dL (8.4-25.7); Bilirubin, Total 1.3 mg/dL (0.3-1.2); Calc. Creatinine Clearance 0 mL/min (70-130); Calcium 9.3 mg/dL (7.8-10.44); Carbon Dioxide 19 mmol/L (23-31); Chloride 104 mmol/L (98-107); Globulin 5.1 g/dL (2.4-3.5); Glucose 93 mg/dL (83-110); Potassium 3.7 mmol/L (3.5-5.1); Sodium 140 mmol/L (136-145)
[2025-07-23 11:38] LABS: MDiff Complete? YES; Manual Diff?? YES
[2025-07-23 11:39] LABS: Platelet Adequacy Comment Appears Decreased
[2025-07-23 11:40] LABS: Anisocytosis SLIGHT = 6-15 cells (100X) (0-5/hpf)
[2025-07-23] MEDS ORDERED: Ondansetron PF 4 MG/2 ML Vial ONE (11:53)
[2025-07-23 14:06] LABS: Glucose, Urine (Dipstick) Negative (Negative); Leukocyte Negative (Negative); Protein, Urine (Dipstick) 100 mg/dL (Neg-Trace); Specific Gravity, Urine 1.020 (1.005-1.030)
[2025-07-23 14:09] LABS: Bacteria/HPF Rare-Few HPF (None Seen); CAUTI Indications for Culture Fever or rigors; RBC/HPF 0-3 HPF (0-3); WBC/HPF 0-3 HPF (0-3)
[2025-07-23 14:10] LABS: Urine Culture Reflex No No
== END 2025-07-23 14:56 | disposition short-term general hospital (02) ==
LOC: MADERS 10:05
DX: A41.9 Sepsis, unspecified organism (principal); D64.9 Anemia, unspecified; D61.818 Other pancytopenia; C90.00 Multiple myeloma not having achieved remission; R79.89 Other specified abnormal findings of blood chemistry; I25.2 Old myocardial infarction; I50.9 Heart failure, unspecified; Z79.899 Other long term (current) drug therapy
CPT/HCPCS: 71045; 80053; 81001; 83605; 85025; 85379; 86850; 86900; 86901; 87070; 87077; 87086; 87186; 87205; 87428; 93005; 96374